=== PATIENT | female | born 1970 | race Caucasian/White ===

== ENCOUNTER → 2017-11-23 09:01 | Outpatient (REF) | payer MEDICAID, SELFPAY ==
[2017-11-23 13:33] LABS: Basophils % 0.5 % (0.1-2.0); Eosinophils # 0.1 K/mm3 (0.0-0.4); Eosinophils % 2.2 % (0.1-12.0); Hematocrit 43.2 % (37.0-47.0); Hemoglobin 13.3 g/dL (12.2-16.2); Lymphocytes # 1.1 K/mm3 (0.7-4.5); Lymphocytes % 20.7 K/mm3 (10-50); Mean Corpuscular HGB Conc 30.8 g/dL (31.8-35.4); Mean Corpuscular Hemoglobin 31.4 pg (27.0-31.2); Mean Corpuscular Volume 101.9 fl (81-99); Mean Platelet Volume 7.9 fl (7.4-10.4); Monocytes # 0.3 K/mm3 (0.1-1.0); Monocytes % 5.8 % (1.7-9.3); Neutrophils # 3.7 K/mm3 (1.8-7.8); Neutrophils % 70.9 % (37.0-80.0); Platelet Count 241 K/mm3 (142-424); Red Blood Count 4.24 M/mm3 (4.20-5.40); Red Cell Distribution Width 12.3 % (11.5-17.5); White Blood Count 5.2 K/mm3 (4.8-10.8)
[2017-11-23 13:55] LABS: Alanine Aminotransferase 28 U/L (12-78); Albumin/Globulin Ratio 1.3 (1.1-1.8); Alkaline Phosphatase 60 U/L (46-116); Anion Gap 14.8 mEq/L (5-15); Aspartate Amino Transferase 19 U/L (15-37); Bilirubin,Total 0.2 mg/dL (0.2-1.0); Blood Urea Nitrogen 17 mg/dL (7-18); Calcium 9.5 mg/dL (8.5-10.1); Carbon Dioxide 27 mmol/L (21.0-32.0); Chloride 104 mmol/L (98-107); Chol/HDL Ratio 3.1 (1-3.5); Cholesterol 269 mg/dL (140-200); Creatinine,Serum 0.71 mg/dL (0.55-1.02); Estimated Glomerular Filt Rate 89 ml/min (>60); GFR (African American) 108 ML/MIN (>60); Glucose 82 mg/dL (74-106); HDL Cholesterol 86 mg/dL (29-89); LDL Cholesterol 163 mg/dL (0-130); Potassium 4.8 mmoL/L (3.5-5.1); Sodium 141 mmol/L (136-145); Thyroid Stimulating Hormone 2.32 uIU/ml (0.358-3.740); Triglycerides 99 mg/dL (30-200); VLDL Cholesterol 20 mg/dL (0-40)
[2017-11-24 06:39] LABS: Vitamin D 25 Hydroxy 16.3 ng/mL (30.0-100.0)
== END ==
LOC: LAB 09:01
PROVIDERS: Visit Provider Physician Assistant
DX: F32.1 Major depressive disorder, single episode, moderate (principal); F51.01 Primary insomnia; G47.00 Insomnia, unspecified; M15.0 Primary generalized (osteo)arthritis; M19.90 Unspecified osteoarthritis, unspecified site; Z79.899 Other long term (current) drug therapy
CPT/HCPCS: 80053; 80061; 82652; 84436; 84443; 85025

== ENCOUNTER → 2018-02-21 09:22 | Outpatient (REF) | payer MEDICAID, SELFPAY ==
[2018-02-21 14:11] LABS: Alanine Aminotransferase 42 U/L (12-78); Albumin Level 4.3 gm/dL (3.4-5.0); Albumin/Globulin Ratio 1.3 (1.1-1.8); Alkaline Phosphatase 72 U/L (46-116); Anion Gap 14.3 mEq/L (5-15); Aspartate Amino Transferase 21 U/L (15-37); Bilirubin,Total 0.4 mg/dL (0.2-1.0); Blood Urea Nitrogen 20 mg/dL (7-18); Calcium 9.6 mg/dL (8.5-10.1); Carbon Dioxide 26 mmol/L (21.0-32.0); Chloride 104 mmol/L (98-107); Cholesterol 241 mg/dL (140-200); Creatinine,Serum 0.94 mg/dL (0.55-1.02); Estimated Glomerular Filt Rate 64 ml/min (>60); GFR (African American) 78 ML/MIN (>60); Globulin 3.2 gm/dl (1.3-3.2); Glucose 85 mg/dL (74-106); HDL Cholesterol 122 mg/dL (29-89); LDL Cholesterol 107 mg/dL (0-130); Potassium 4.3 mmoL/L (3.5-5.1); Sodium 140 mmol/L (136-145); T4 (Thyroxine) 7.2 ug/dl (4.7-13.3); Thyroid Stimulating Hormone 2.94 uIU/ml (0.358-3.740); Total Protein,Serum 7.5 gm/dL (6.4-8.2); Triglycerides 58 mg/dL (30-200); VLDL Cholesterol 12 mg/dL (0-40)
[2018-02-23 14:50] LABS: Folate 15.5 ng/mL (>3.0); Vitamin B12 401 pg/mL (232-1245); Vitamin D 25 Hydroxy 38.5 ng/mL (30.0-100.0)
== END ==
LOC: LAB 09:22
PROVIDERS: Visit Provider Physician Assistant
DX: E78.5 Hyperlipidemia, unspecified (principal); E55.9 Vitamin D deficiency, unspecified
CPT/HCPCS: 80053; 80061; 82607; 82652; 82746; 84436; 84443

== ENCOUNTER → 2018-03-21 07:43 | Outpatient (CLI) | payer MEDICAID, SELFPAY ==
--- NOTE | 2018-03-21 | CA_ITS ---
PROCEDURE: 2-D M-mode and color Doppler study INDICATIONS FOR THE TEST: Chest pain+ COPD Heart Murmur Tobacco SmokingEX Palpitations+ Fatigue Syncope Edema Hypertension Diabetes Mellitus Rheumatic Fever SOB+DE LEON Obesity Hyperlipidemia+ Family History HD+ Additional History heart flipping , chest pressure PATIENT INFORMATION HEIGHT: 64 WEIGHT: 150 GENDER: Female B/P: 131/85 2-D/M-MODE INTERPRETATION: 2-D MEASUREMENTS OBSERVED VALUES IN CMS Right Ventricular Dimension (RVDd) 2.9 Interventricular Septum (Thickness)(IVsd) 0.9 Left Ventricular Internal Dimensions(LVIDd) 4.1 Left Ventricular Posterior Wall (Thickness)(LVPWd) 0.9 Aortic Root 2.3 Aortic Cusp Separation 2.0 Left Atrial Dimensions (LAD) 3.0 2D 1. Left atrium is normal size, left ventricle is normal size, there is no concentric left ventricular hypertrophy, visually estimated ejection fraction 55% with no obvious regional wall motion abnormality. 2. The right atrium and right ventricle are normal size and contractility. 3. The aortic, mitral and tricuspid valve are grossly normal. 4. The pulmonic valve is poorly visualized. 5. No significant pericardial effusion noted. DOPPLER INTERROGATION: Doppler interrogation of the aortic, mitral and tricuspid valvular presence of mild mitral and tricuspid regurgitation, tricuspid regurgitation jet velocity is insufficient for calculation ventricular systolic pressure, diastolic parameters are within normal range. CONCLUSION: 1. Normal left ventricular size, preserved left ventricular systolic function, visually estimated ejection fraction 55% with no regional wall motion abnormality, diastolic parameters are within normal range. 2. Mild mitral and tricuspid regurgitation 3. No significant pericardial effusion noted.
--- NOTE | 2018-03-21 | CI_ITS ---
Cerebrovascular Exam Indications: 785.9 Bruit. IMPRESSIONS 1. The bilateral vertebral arteries are patent with normal antegrade flow. 2. Study suggests less than 20% stenosis involving the right internal carotid artery and the left internal carotid artery. History: Risk factors: Former smoker - years since quittinyr. Hyperlipidemia. Carotid duplex study. Complete study and Doppler flow study including spectral analysis, color and constantino scale imaging. Height: Height: 162.6cm. Height: 64in. Weight: Weight: 68kg. Weight: 149.7lb. Body mass index: BMI: 25.7kg/m^2. Body surface area: BSA: 1.77m^2. Location: Vascular laboratory. Patient status: Outpatient. Tables: Arterial flow: + +--------+--------+ Location V sys V ed + +--------+--------+ Right CCA - proximal 119cm/s 40.1cm/s + +--------+--------+ Right CCA - distal 80.1cm/s 36.1cm/s + +--------+--------+ Right ECA 77.3cm/s -------- + +--------+--------+ Right ICA - proximal 85.6cm/s 33cm/s + +--------+--------+ Right ICA - mid 89.6cm/s 43.2cm/s + +--------+--------+ Right ICA - distal 120cm/s 49.5cm/s + +--------+--------+ Right vertebral 49cm/s -------- + +--------+--------+ Left CCA - proximal 93.7cm/s 28.9cm/s + +--------+--------+ Left CCA - distal 76.1cm/s 33.3cm/s + +--------+--------+ Left ECA 93cm/s -------- + +--------+--------+ Left ICA - proximal 76.1cm/s 37.1cm/s + +--------+--------+ Left ICA - mid 107cm/s 44cm/s + +--------+--------+ Left ICA - distal 96.8cm/s 42.7cm/s + +--------+--------+ Left vertebral 60.3cm/s -------- + +--------+--------+ Velocity ratios: + + + + + + Right, V sys Right, V ed Left, V sys Left, V ed + + + + + + Max ICA/dist CCA 1.5 1.37 1.41 1.32 + + + + + + (Report amended ) Electronically signed by: Arturo Corbin [id number]
--- NOTE | 2018-03-21 07:46 | CT_ITS ---
Calcium scoring CT heart w calcium score ITS.REASON: . ORDERING PHYSICIAN ALYSHA 48 years COMPARISON: None Technique: All CT scans at this facility use one or more dose reduction techniques, viz.: automated exposure control, ma/kV adjustment per patient size (including targeted exams where dose is matched to indication, i.e. head) or iterative reconstruction technique. . Total exam DLP 143.91 with CTDI = 8.99 .. Calcium score = 0 indicating a moderate. No identifiable at the right plaque. Very low cardiovascular disease risk. Visual inspection shows no significant coronary artery calcifications either. There are some chronic lung changes and airway thickening seen towards the left base more so than right consistent been noted.. Limited images submitted of the chest for the calcium score normal caliber of ascending aorta. No gross mediastinal findings on this limited set of images --------IMPRESSION: ------- Coronary artery Calcium score = 0 . Very low cardiovascular disease risk.
== END ==
PROVIDERS: PCP Physician Assistant; Visit Provider Internal Medicine
DX: E78.5 Hyperlipidemia, unspecified (principal); Z82.49 Family history of ischemic heart disease and other diseases of the circulatory system; R09.89 Other specified symptoms and signs involving the circulatory and respiratory systems
CPT/HCPCS: 75571; 93306; 93880

== ENCOUNTER → 2019-06-05 14:40 | Outpatient (CLI) | payer OTHER, SELFPAY ==
--- NOTE | 2019-06-05 14:42 | US_ITS ---
PROCEDURE: US TRANSVAGINAL CLINICAL INDICATION: US T/V- Heavy Bleeding COMPARISON: No exams were available for comparison FINDINGS: The uterus is 10 x 6 x 6 cm with a combined endometrial thickness of 12 mm. The uterus is retroverted. There is a 2.4 cm fibroid in the inferior aspect of the body of the uterus. A 4.6 cm fibroid is present in the body/fundal uterus region anteriorly. The left ovary is 4 x 2.5 cm and contains 2 cyst at approximately 2 cm. The right ovary is 3.2 by 2 cm. No cul-de-sac fluid evident. IMPRESSION: Enlarged retroverted uterus containing fibroids and mildly thickened endometrium Dictated by: Daniel Clark MD 06/06/2019 14:24 Electronically signed by Daniel Clark MD in [facility] 06/06/2019 14:24
== END ==
PROVIDERS: PCP Physician Assistant; Visit Provider Obstetrics & Gynecology
DX: N92.0 Excessive and frequent menstruation with regular cycle (principal)
CPT/HCPCS: 76830

== ENCOUNTER → 2019-09-01 09:20 | Outpatient (CLI) | payer OTHER, SELFPAY ==
[2019-09-01 10:07] LABS: HCG Qualitative, Serum Negative (Negative)
[2019-09-01 10:44] LABS: Chloride 101 mmol/L (98-107)
[2019-09-01 10:45] LABS: Potassium 4.9 mmoL/L (3.5-5.1); Sodium 138 mmol/L (136-145)
[2019-09-01 10:47] LABS: Alanine Aminotransferase 35 U/L (12-78); Aspartate Amino Transferase 48 U/L (14-36); Blood Urea Nitrogen 14 mg/dl (7-17); Estimated Glomerular Filt Rate 107 ml/min (>60); GFR (African American) 130 ML/MIN (>60)
[2019-09-01 10:48] LABS: Albumin Level 4.6 g/dl (3.5-5.0); Alkaline Phosphatase 50 U/L (38-126); Anion Gap 12.9 mEq/L (5-15); Bilirubin,Total 0.4 mg/dl (0.2-1.3); Calcium 9.7 mg/dl (8.4-10.2); Carbon Dioxide 29 mmol/L (22.0-30.0); Globulin 2.3 g/dL (1.3-3.2); Glucose 80 mg/dl (74-100); Total Protein,Serum 6.9 g/dl (6.3-8.2)
[2019-09-01 12:32] LABS: Basophils % 0.4 % (0.1-2.0); Eosinophils # 0.1 K/mm3 (0.0-0.4); Eosinophils % 2.1 % (0.1-12.0); Hematocrit 39.9 % (37.0-47.0); Lymphocytes # 1.2 K/mm3 (0.7-4.5); Lymphocytes % 21.5 % (10-50); Mean Corpuscular HGB Conc 32.5 g/dL (31.8-35.4); Mean Corpuscular Volume 101.4 fl (81-99); Mean Platelet Volume 7.5 fl (7.4-10.4); Monocytes # 0.3 K/mm3 (0.1-1.0); Monocytes % 5.4 % (1.7-9.3); Neutrophils # 3.9 K/mm3 (1.8-7.8); Neutrophils % 70.6 % (37.0-80.0); Platelet Count 309 K/mm3 (142-424); Red Blood Count 3.94 M/mm3 (4.20-5.40); Red Cell Distribution Width 12.1 % (11.5-17.5); White Blood Count 5.5 K/mm3 (4.8-10.8)
[2019-09-01 12:46] LABS: Activated Partial Thrombo Time 22.4 seconds (23.6-34.0); INR 0.95 (0.9-1.1); Prothrombin Time 9.9 seconds (9.4-11.8)
== END ==
PROVIDERS: Visit Provider Obstetrics & Gynecology
DX: Z01.818 Encounter for other preprocedural examination (principal); D69.6 Thrombocytopenia, unspecified; D69.1 Qualitative platelet defects
CPT/HCPCS: 36415; 80053; 84703; 85025; 85610; 85730

== ENCOUNTER → 2020-01-04 15:07 | Outpatient (CLI) | payer OTHER, SELFPAY ==
[2020-01-04 15:21] LABS: Basophils % 0.6 % (0.1-2.0); Eosinophils # 0.3 K/mm3 (0.0-0.4); Eosinophils % 5.4 % (0.1-12.0); Hematocrit 42.6 % (37.0-47.0); Hemoglobin 13.5 g/dL (12.2-16.2); Lymphocytes # 1.1 K/mm3 (0.7-4.5); Lymphocytes % 20.4 % (10-50); Mean Corpuscular HGB Conc 31.7 g/dL (31.8-35.4); Mean Corpuscular Hemoglobin 33.9 pg (27.0-31.2); Monocytes # 0.3 K/mm3 (0.1-1.0); Monocytes % 5.8 % (1.7-9.3); Neutrophils # 3.6 K/mm3 (1.8-7.8); Neutrophils % 67.7 % (37.0-80.0); Platelet Count 293 K/mm3 (142-424); Red Blood Count 3.98 M/mm3 (4.20-5.40); Red Cell Distribution Width 12.1 % (11.5-17.5); White Blood Count 5.4 K/mm3 (4.8-10.8)
== END ==
PROVIDERS: Visit Provider Physician Assistant
DX: I10 Essential (primary) hypertension (principal)
CPT/HCPCS: 85025

== ENCOUNTER → 2020-01-15 15:25 | Outpatient (CLI) | payer OTHER, SELFPAY ==
[2020-01-17 13:30] LABS: Vitamin B12 342 pg/mL (232-1245)
[2020-01-18 09:38] LABS: Folate 13.4 ng/mL (>3.0)
== END ==
PROVIDERS: Visit Provider Physician Assistant
DX: R71.8 Other abnormality of red blood cells (principal)
CPT/HCPCS: 36415; 82607; 82746

== ENCOUNTER → 2020-07-08 16:51 | Outpatient (CLI) | payer OTHER, SELFPAY | PROVIDERS: Visit Provider Physician Assistant | DX: R35.0 Frequency of micturition (principal) | CPT/HCPCS: 87086 ==

== ENCOUNTER → 2020-07-10 09:47 | Outpatient (CLI) | payer OTHER, SELFPAY ==
--- NOTE | 2020-07-10 09:50 | XR_ITS ---
PROCEDURE: XR LUMBAR SPINE MIN 4V CLINICAL INDICATION: LBP Low back pain COMPARISON: No exams were available for comparison FINDINGS: No fracture or dislocation. No lytic or blastic change. There is normal mineralization. There is normal alignment. Degenerative disc disease is present at L4-5 and L5-S1. There are facet arthritic changes at L5-S1. There is also mild sclerosis the right SI joint. Other findings:None. IMPRESSION: Mild degenerative changes Dictated by: Daniel Clark MD 07/10/2020 17:12 Daniel Clark MD in [facility] 07/10/2020 17:12
== END ==
PROVIDERS: PCP Emergency Medicine; Visit Provider Physician Assistant
DX: M54.5 Low back pain (principal)
CPT/HCPCS: 72110

== ENCOUNTER 2020-07-15 15:38 | Outpatient (RCR) | payer OTHER, SELFPAY ==
--- NOTE | 2020-07-15 17:05 | HMH.PTOPEV ---
PT Outpatient Evaluation Rehab PT Outpatient Evaluation Start: 07/15/20 16:56 Freq: Status: Active Protocol: Document 07/15/20 16:56 BLANCAPAULINA (Rec: 07/15/20 17:05 BENJAMIN [id number]) Electronically Signed By Jude Chase PT 07/15/20 16:56 Outpatient Therapy Subjective History Subjective History THis is the initial Physical THerapy evalaution for Marlee Joseph. Pt is a 50 y/o female referred to PT for c/o LBP. Pt reports she began having LBP ~ Jun 27. Pt reports she woke up and felt like she slept on it wrong . Pt reports by the end of the day pain was excruciating and she was having difficulty walking. Pt reports pain has improved but she still has significant pain in lumbosacral area. Pt reports no trauma to low back . Chief Complaint Pain Symptom Type Sharp Symptoms Relieved By Rest/Positioning,Heat,Ice Symptoms Aggravated By Sitting,Standing,Bending/ Stooping,Physical Activity Prior Functional Limitations None,Bending/Stooping Current Functional Limitations Housework,Standing,Sitting, Recreation Activity,Bending/ Stooping Symptom Description Constant but Variable Level of pain today (0-10) 5 Pain scale - at its best (0-10) 5 Pain scale - at its worst (0-10) 9 Lumbopelvic Eval Palapation tenderness bilateral lumbar spinal tenderness Yes paraspinal tenderness Yes buttock tenderness No Lumbar/Sacral Palpation Findings Tenderness Range of Motion Lumbar Spine Active Flexion Range of 60 Motion (degrees) Lumbar Spine Active Extension Range of 20 Motion (degrees) Left Lumbar Spine Lateral Flexion Active 25 Range of Motion (degrees) Right Lumbar Spine Lateral Flexion 25 Active Range of Motion (degrees) Lumbar Spine ROM Limitations Soft Tissue Tightness,Pain Special Tests Lumbar Spine Screen Positive Forward Bending Test- Standing Positive Right Hip Scouring (Quadrant) Test Negative Left,Negative Right Hip Piriformis Test Negative Left,Negative Right Sciatic Nerve Tension Test Negative Left,Negative Right Unilateral Straight Leg Raise (Lasegue) Negative Left,Negative Right Test Sacroiliac Joint Compression Test Negative Left,Negative Right Lumbar Long Leighton Di
== END 2020-07-15 15:40 | disposition home or self-care (01) ==
LOC: PT 15:38
PROVIDERS: Referring Provider Physician Assistant; Visit Provider Physician Assistant
DX: M54.5 Low back pain (principal)
CPT/HCPCS: 97163

== ENCOUNTER → 2020-08-28 18:29 | Outpatient (CLI) | payer OTHER, SELFPAY ==
[2020-08-28 20:20] LABS: Amphetamine/Metha Screen,Urine Negative ng/ml (<1000)
[2020-08-28 20:21] LABS: Barbiturates Screen,Urine Negative ng/ml (<200)
[2020-08-28 20:22] LABS: Benzodiazepines Screen,Urine Negative ng/ml (<200); Cannabinoid Screen,Urine Negative ng/ml (<50)
[2020-08-28 20:23] LABS: Cocaine Screen,Urine Negative ng/ml (<300)
[2020-08-28 20:24] LABS: Methadone Screen,Urine Negative ng/ml (<300); Opiate Screen,Urine Positive ng/ml (<300)
[2020-08-28 20:25] LABS: Phencyclidine Screen,Urine Negative ng/ml (<25)
== END ==
PROVIDERS: Visit Provider Physician Assistant
DX: M54.5 Low back pain (principal); E78.5 Hyperlipidemia, unspecified; E55.9 Vitamin D deficiency, unspecified; N92.0 Excessive and frequent menstruation with regular cycle; Z82.49 Family history of ischemic heart disease and other diseases of the circulatory system; Z79.899 Other long term (current) drug therapy
CPT/HCPCS: 80305

== ENCOUNTER 2020-09-06 10:00 | Outpatient (RCR) | payer OTHER, SELFPAY ==
--- NOTE | 2020-08-30 11:42 | HMH.PTOPEV ---
PT Outpatient Evaluation Rehab PT Outpatient Evaluation Start: 08/30/20 11:30 Freq: Status: Active Protocol: Document 08/30/20 11:30 IVANNAUMA (Rec: 08/30/20 11:42 IVANNAJAIMEGENEVA [id number]) Electronically Signed By Osman Valdez, PT 08/30/20 11:30 Outpatient Therapy Subjective History Subjective History Patient is a 50 year old female presenting to outpatient PT with reports of sub-acute LBP starting approx 1.5 months ago with acute exacerbation starting approx 1 week ago. Patient was previously set up with PT exercises to do at home that provided some improvement, but most recently experienced exacerbation after a bending/ lifting activity. Most recent imaging indicates L4/5 L5/S1 DDD and facet arthritic changes. No other comorbidities to report. Chief Complaint Pain,Stiff Symptom Type Throb Symptoms Relieved By Heat,Ice,Prescription Meds Prior Functional Limitations None Current Functional Limitations Lifting,Housework,Standing, Squatting,Walking,Bending/ Stooping Symptom Description Constant but Variable Level of pain today (0-10) 6 Pain scale - at its best (0-10) 3 Pain scale - at its worst (0-10) 6 Lumbopelvic Eval Posture Thoracic Spine Posture Standing Position Neutral Lumbar Spine Posture Standing Position Neutral Assistive device Assistive Devices None / NA Palapation tenderness right lumbar spinal tenderness Yes: L4/5 S1 3/4 paraspinal tenderness Yes: buttock tenderness Yes: 3/4 Lumbar/Sacral Palpation Findings Tenderness Accessory Movement L4 right L5 right S1 right Range of Motion Lumbar Spine Active Flexion Range of 74 Motion (degrees) Lumbar Spine Active Extension Range of 12 Motion (degrees) Left Lumbar Spine Lateral Flexion Active 30 Range of Motion (degrees) Right Lumbar Spine Lateral Flexion 20 Active Range of Motion (degrees) Lumbar Spine ROM Limitations Soft Tissue Tightness,Bony Restriction Manual Muscle Test Bilateral Knee Extension Strength Grade 5 Normal Knee Flexion Strength Grade 5 Normal Hip Flexion Strength Grade 5 Normal
== END 2020-09-06 10:05 | disposition home or self-care (01) ==
LOC: PT 10:00
PROVIDERS: PCP Emergency Medicine; Visit Provider Physician Assistant
DX: M54.5 Low back pain (principal)
CPT/HCPCS: 97010; 97014; 97033; 97035; 97110; 97163; G0283

== ENCOUNTER → 2020-09-09 08:27 | Outpatient (CLI) | payer OTHER, SELFPAY ==
--- NOTE | 2020-09-09 08:27 | MM_ITS ---
PROCEDURE: MM DIG SCREENING MAMM BI W/CAD Digital Breast Tomosynthesis Included CLINICAL INDICATION: Breast cancer screening by mammogram There is no personal or family history of breast cancer. COMPARISON: MG MA MAMMO SCRN DIGITL BILAT from 09/17/2014 MG MA MAMMO SCRN DIGITL BILAT from 10/02/2015 MG MA MAMMO DIAG DIGITL LT from 10/30/2015 TECHNIQUE: Standard CC and MLO images and 3D Tomosynthesis was obtained. R2 CAD reviewed. FINDINGS: Diffuse fibroglandular densities are seen in both breast primarily upper outer quadrants. The findings are fairly symmetrical bilaterally. There is a mole marker left breast. There are couple of benign-appearing microcalcifications left breast. A couple of CAD markings right breast were reviewed and appear to be benign. There is no suspicious lesion and no suspicious microcalcifications. IMPRESSION: Moderate breast density with no suspicious lesions seen BI-RAD Category: 2 Benign Finding(s) FOLLOW-UP: 1YR 1 Year Follow-up (A letter has been sent to the patient regarding results of the study.) Dictated by: Dr. Huber Elizabeth MD 09/30/2020 16:45 Dr. Huber Elizabeth MD in [facility] 09/30/2020 16:45
== END ==
PROVIDERS: PCP Emergency Medicine; Visit Provider Physician Assistant
DX: Z12.31 Encounter for screening mammogram for malignant neoplasm of breast (principal)
CPT/HCPCS: 77063; 77067

== ENCOUNTER → 2020-09-14 09:37 | Outpatient (CLI) | payer OTHER, SELFPAY ==
[2020-09-14 11:11] LABS: Basophils % 0.8 % (0.1-2.0); Eosinophils % 0.1 % (0.1-12.0); Hematocrit 38.3 % (37.0-47.0); Hemoglobin 12.6 g/dL (12.2-16.2); Lymphocytes % 22.1 % (10-50); Mean Corpuscular HGB Conc 32.8 g/dL (31.8-35.4); Mean Corpuscular Hemoglobin 32.9 pg (27.0-31.2); Mean Corpuscular Volume 100.1 fl (81-99); Monocytes # 0.3 K/mm3 (0.1-1.0); Neutrophils # 3.1 K/mm3 (1.8-7.8); Neutrophils % 71.1 % (37.0-80.0); Platelet Count 275 K/mm3 (142-424); Red Blood Count 3.82 M/mm3 (4.20-5.40); White Blood Count 4.4 K/mm3 (4.8-10.8)
[2020-09-14 12:14] LABS: HCG Qualitative, Serum Negative (Negative)
[2020-09-14 12:59] LABS: Alanine Aminotransferase 16 U/L (12-78); Albumin Level 4.4 g/dl (3.5-5.0); Albumin/Globulin Ratio 1.8 (1.1-1.8); Alkaline Phosphatase 69 U/L (38-126); Anion Gap 12.5 mEq/L (5-15); Aspartate Amino Transferase 29 U/L (14-36); Bilirubin,Total 0.4 mg/dl (0.2-1.3); Blood Urea Nitrogen 16 mg/dl (7-17); Calcium 9.2 mg/dl (8.4-10.2); Carbon Dioxide 22 mmol/L (22.0-30.0); Chloride 109 mmol/L (98-107); Estimated Glomerular Filt Rate 67 ml/min (>60); GFR (African American) 81 ML/MIN (>60); Globulin 2.4 g/dL (1.3-3.2); Glucose 98 mg/dl (74-100); Potassium 4.5 mmoL/L (3.5-5.1); Sodium 139 mmol/L (136-145); Total Protein,Serum 6.8 g/dl (6.3-8.2)
== END ==
PROVIDERS: PCP Physician Assistant; Visit Provider Obstetrics & Gynecology
DX: Z01.818 Encounter for other preprocedural examination (principal); Z20.822 Contact with and (suspected) exposure to COVID-19; N92.0 Excessive and frequent menstruation with regular cycle; N85.2 Hypertrophy of uterus
CPT/HCPCS: 36415; 80053; 84703; 85025; U0003

== ENCOUNTER 2020-09-16 06:31 | Inpatient (IN) | payer OTHER, SELFPAY ==
[2020-09-10 11:27] VITALS: BMI 25.7
[2020-09-16] VITALS (20 sets, daily range): BP systolic 98–163; BP diastolic 53–93; PULSE 62–101; RESP 16–18; TEMP 6.1–43; O2SAT 92–99
--- NOTE | 2020-09-16 08:29 | HMH.HP ---
*Admission Date: 09/16/20 *Chief complaint: scheduled hysterectomy *History of present illness: 50 yo with heavy menstrual bleeding and enlarged uterus multiple multiple fibroids She has been taking po provera for management of dysfunctional bleeding Pelvic Ultrasound: The uterus is 10 x 6 x 6 cm with a combined endometrial thickness of 12 mm. The uterus is retroverted. There is a 2.4 cm fibroid in the inferior aspect of the body of the uterus. A 4.6 cm fibroid is present in the body/fundal uterus region anteriorly. The left ovary is 4 x 2.5 cm and contains 2 cyst at approximately 2 cm. The right ovary is 3.2 by 2 cm. No cul-de-sac fluid evident. Counseled for preservation of ovaries if they appear normal at time of surgery [facility] History I have reviewed the patient's past medical history: Yes Medical History: Reports:: Anxiety, Depression, Hyperlipidemia Denies:: Asthma, Cancer, Diabetes Mellitus Type 1, Diabetes Mellitus Type 2, Internal Pacemaker, MRSA, Seizures *Have you ever received a pneumonia vaccine?: No *Have you received a flu vaccine this season?: No Other Medical History: Reports: Other. Denies: Blood Transfusion Reaction Other Surgeries: Yes: Tubal Ligation. No: Pacemaker Amputation: No Fractures: No - *Social History Last grade of school completed: High school graduate Smoking Status: Former smoker Alcohol Intake: current Alcohol Intake Frequency:: a few times a week Substance Use Type: denies use *Occupational Status:: employed Housing: house Household Members: spouse *Travel in the last 8 weeks: None - Psychiatric History Pschychiatric History:: Reports:: Anxiety, Depression Family Hx:: No significant family history Review of Systems - Review of Systems Review of systems:: pertinent systems reviewed and negative unless documented below - *Genitourinary Reports abnormal vaginal bleeding, Reports pelvic pain Meds Home Medications Medication Instructions Recorded Confirmed Type ondansetron HCl 4 mg tablet 4 mg PO TID PRN #30 tab 12/06/18 09/16/20 Rx hydrocodone 5 mg-acetaminophen 325 1 tab PO Q6H PRN #40 tab 08/28/20 09/16/20 Rx mg tablet Aspirin [Low Dose Aspirin EC] 81 mg PO DAILY 09/10/20 09/16/20 History Atorvastatin Calcium [Lipitor 20mg See Rx Instructions .ROUTE .COMPLEX 09/10/20 09/16/20 History Tab] Cholecalciferol (Vitamin D3) 1,000 unit PO DAILY 09/10/20 09/16/20 History [Vitamin D3 1,000 Unit Cap] Duloxetine HCl [Cymbalta] See Rx Instructions .ROUTE .COMPLEX 09/10/20 09/16/20 History Ergocalciferol (Vitamin D2) See Rx Instructions .ROUTE .COMPLEX 09/10/20 09/16/20 History [Drisdol] Ibuprofen See Rx Instructions .ROUTE .COMPLEX 09/10/20 09/16/20 History Losartan/Hydrochlorothiazide 1 tab PO DAILY 09/10/20 09/16/20 History [Losartan-Hctz 50-12.5 mg Tab] Medroxyprogesterone Acetate 10 mg PO .3 tablets bid 09/10/20 09/16/20 History [Provera] Nystatin [Nystatin Cr 100,000 1 applic TOPICAL DAILY 09/10/20 09/16/20 History Units/GM 30GM] Quetiapine Fumarate See Rx Instructions .ROUTE .COMPLEX 09/10/20 09/16/20 History Valacyclovir HCl [Valacyclovir] 1,000 mg PO BID 09/10/20 09/16/20 History Allergies Allergy/AdvReac Type Severity Reaction Status Date / Time No Known Allergies Allergy Verified 09/16/20 07:35 Exam Vital signs and Labs for Last 24 Hours: Temp Pulse Resp BP Pulse Ox 97.5 F L 72 18 144/91 H 99 09/16/20 07:39 09/16/20 07:39 09/16/20 07:39 09/16/20 07:39 09/16/20 07:39 - Constitutional no acute distress - *Routine HEENT Exam Head: Present: normocephalic, atraumatic Eye: Absent: conjunctival icterus, scleral injection ENT: Present: mucous membranes moist - *Routine Neck Exam Present: supple - *Routine Respiratory Exam Present: CTA bilaterally. Absent: respiratory distress - *Routine Cardiovascular Exam Present: RRR - *Routine Abdominal Exam Present: soft. Absent: tenderness, distended - *Ro
--- NOTE | 2020-09-16 09:05 | P.PN_ITS ---
[facility] Anesthesia Checklist - Patient Identification Patient Identification: Arm Band - Structural Data Admitted From: Home Planned Operative Procedure/s: CHARIS Consent for Planned Operative Procedure(s) Verified: Yes Verified Documents: Surgical Consent, History and Physical - NPO Status Verified Time NPO: 00:00 - Additional verifications Anesthesia Reactions: No Hx Blood Transfusions: No Blood Transfusion Reaction: No - Airway Assessment C-Spine Mobility Assessed: Yes (mp2) TMJ Mobility Assessed: Yes Dentition: Good Dentition - Neurological Assessment Level of Consciousness: Awake, Alert - Anesthesia Plan Anesthesia Risk discussed: Yes Anesthesia Plan: Verified ASA Class: II Anesthesia Type: General w/block (bilateral TAP block) [facility] History I have reviewed the patient's past medical history: Yes Medical History: Reports:: Anxiety, Depression, Hyperlipidemia, Hypertension Denies:: Asthma, Cancer, Diabetes Mellitus Type 1, Diabetes Mellitus Type 2, Internal Pacemaker, MRSA, Seizures *Have you ever received a pneumonia vaccine?: No *Have you received a flu vaccine this season?: No Other Medical History: Reports: Other. Denies: Blood Transfusion Reaction Anesthesia experience/problems:: nac Other Surgeries: Yes: Tubal Ligation. No: Pacemaker Amputation: No Fractures: No - *Social History Last grade of school completed: High school graduate Smoking Status: Former smoker Alcohol Intake: current Alcohol Intake Frequency:: a few times a week Substance Use Type: denies use *Occupational Status:: employed Housing: house Household Members: spouse *Travel in the last 8 weeks: None - Psychiatric History Pschychiatric History:: Reports:: Anxiety, Depression Family Hx:: No significant family history
--- NOTE | 2020-09-16 10:11 | P.PN_ITS ---
[facility] Anesthesia Record Part I Intake, IV Amount: 1,200 Estimated blood loss (mL): 100 Urine output (mL): 50 Blood Pressure: 163/93 SaO2: 94 Pulse Rate: 78 Respiratory Rate: 16 Temperature: 99.7 F Patient is:: Drowsy, Stable Stable to PACU at:: 10:00
--- NOTE | 2020-09-16 10:46 | HMH.OPNOTE ---
Date of procedure: 09/16/20 Pre-op Diagnosis:: 1. Heavy menstrual bleeding 2. Enlarged/bulky uterus 3. Uterine Fibroids Post-op Diagnosis:: same Procedure performed:: Total abdominal hysterectomy Surgeon:: Florence Lala MD Agency Sales Director(s):: Johnnie Chawla MD WATER FILTER CLEANER:: Santosh Joan Anesthesia: GETA Estimated blood loss (mL): 100 Operative findings:: enlarged uterus, uterine fibroids normal appearing ovaries and fallopian tubes bilaterally previous tubal ligation Operative note:: The patient was taken to the operating room and general anesthesia was administered without difficulty. She was prepped and draped in the supine position. A Pfannenstiel skin incision was made approximately 2 cm above the pubic symphysis with a scalpel and carried down to the underlying layer of fascia. The fascia was incised in the midline and extended laterally sharply. The rectus muscles were sharply dissected off the fascia and in the midline. The peritoneum was turned and sharply, with good visualization of the underlying structures. The peritoneal incision was extended bluntly. A survey of the patient's pelvis and abdomen revealed the findings noted above. At this time, the patient was placed in Trendelenburg and a Gisselle retractor was placed in the abdomen; the bowel was packed with moist laparotomy sponges. A double tooth tenaculum was placed on the uterine fundus and the uterus was elevated out of the pelvis. The round ligaments were identified and transected and suture-ligated. The anterior lip of the broad ligament was dissected medially on both sides and the bladder flap was created digitally. The large fibroid was mid left lateral uterine body, but this did not obstruct the ability to create a functional bladder flap. The posterior leaf of the broad ligament was dissected until the ureters were able to be identified on either side and noted to be free of the forthcoming adnexal pedicles. Both ovaries appeared normal and decision was made to preserve normal ovarian function. Infundibulopelvic ligaments were doubly clamped transected and suture ligated on either side, with excellent hemostasis noted. The fallopian tubes on either side were clamped transected and suture ligated and the specimens were set aside for pathology. The uterine arteries were skeletonized on either side, and were clamped, transected and suture ligated with excellent hemostasis. The bladder flap was further bluntly dissected off the lower uterine segment with excellent hemostasis and without injury to the bladder. The large fibroid mid-uterine body on the left required an additional few bites but no excessive bleeding was noted. The cardinal and uterosacral ligaments were clamped transected and suture ligated on both sides until the vaginal mucosa was entered. The vaginal incision was extended circumferentially with the Jorganson scissors; the uterus and cervix were removed abdominally and sent for pathology, along with the fallopian tubes. The vaginal cuff angles were closed 0 Vicryl [id number] sutures and were transfixed to the ipsilateral cardinal and uterosacral ligaments. The remainder of the vaginal cuff was closed with 0 Vicryl interrupted sutures. The pelvis was copiously irrigated with a solution of sterile water. The cuff was hemostatic. All pedicles were reexamined and remained hemostatic. All instruments were removed from the patient's abdomen. The peritoneum was closed with 2-0 Vicryl in a running fashion. The fascia was closed with 0 Vicryl in a running fashion. Subcutaneous fat was reapproximated with 2-0 vicryl interrupted sutures. The skin was closed with preethi. The patient tolerated the procedure well; sponge/lap/needle and instrument counts were correct ?2. She was taken to the recovery room awake in stable condition. Estimated blood loss: 100 cc. Condition: stable Disposition: PACU Complications:: none
--- NOTE | 2020-09-16 11:00 | PC.NURSE ---
Pt. rates pressure at 8/10 at incision site, site remain C/D/I, pink and warm. Nurse educated pt. on pain medications. Pt. refused pain medication at this time. Pt. denies needs, will continue to monitor.
--- NOTE | 2020-09-16 12:00 | PC.NURSE ---
Pt. reports pain remains at 8/10, but wishes to have pain medications, 1mg dilaudid given at this time. Pt. tolerated well, O2 sats noted to drop to 89% after administration, NC at 2L O2 applied. O2 sats up to 97%. Pt. denies further needs, will continue to monitor.
--- NOTE | 2020-09-16 14:21 | HMH.PHAINT ---
MEDICATION RECONCILIATION COMPLETED ON PATIENT USING EXTERNAL FILL HISTORY FROM PHARMACY. -DELFIN POLK, HONGD
--- NOTE | 2020-09-16 14:22 | HMH.PHAVTE ---
[facility] Pharmacy VTE Monitoring - Patient Demographics Admission date: 09/16/20 Report Date: 09/16/20 Time: 14:22 Allergies/Adverse Reactions: Patient Allergies No Known Allergies Allergy (Verified 09/16/20 07:35) Height: 1.63 m Weight: 68.039 kg Patient Problems: Current Active Problems (Last Updated 11/25/17 @ 08:34 by TACO Varghese) Bulky or enlarged uterus (Acute) Heavy menses (Acute) Uterine fibroid (Acute) - VTE Risk Was VTE Risk Assessment Performed: Yes VTE Score: 2 VTE Risk Level: Very Low Risk - Prophylaxis VTE Prophylaxis Ordered?: Yes Types of VTE Prophylaxis: IPCS Thigh High Location of Applied Device: Bilateral Lower Extremeties
[2020-09-16 14:38] LABS: Microscopic,Cath URINE MICROSCOPIC (MICROSCOPIC)
[2020-09-16 14:39] LABS: Appearance,Urine/Cath CLEAR (Clear); Bilirubin,Cath Negative (Negative); Blood, Urine/Cath Negative (Negative); Color,Urine/Cath YELLOW (Yellow); Glucose,Urine/Cath (UA) Negative (Negative); Ketones,Urine/Cath Negative (Negative); Leukocyte Esterase,Cath Negative (Negative); Nitrate,Cath Negative (Negative); Protein,Urine/Cath Negative (Negative); Specific Gravity, Urine/Cath 1.025 (1.005-1.030); Urobilinogen,Cath 0.2 EU/dl (0.2)
[2020-09-16 14:51] LABS: WBC,Urine/Cath Occasional #/hpf (0-3)
--- NOTE | 2020-09-16 16:00 | PC.NURSE ---
Routine reassessment completed. Pt. reports pain is more comfortable, pain is gone from incision site. Pt. denies nausea with clear liquids and cracker. small amount of serous drainage noted to right side of LTV Telfa and tegaderm. No further acute changes noted. Pt. resting in bed, denies needs, will continue to monitor.
--- NOTE | 2020-09-16 17:25 | PC.NURSE ---
O2 sats at 99% on 2L. NC Removed. O2 SATS AT 97% on RA. Will continue to monitor.
--- NOTE | 2020-09-16 19:00 | PC.NURSE ---
Report given Debra Roland RN, & Mac Olivares RN.
[2020-09-17] VITALS: BP 113/54; PULSE 77; RESP 18; TEMP 36.6; O2SAT 98
[2020-09-17 04:00] VITALS: BP 127/70; PULSE 77; RESP 18; TEMP 36.7; O2SAT 97
--- NOTE | 2020-09-17 04:38 | PC.NURSE ---
No acute changes this shift. Patient has done well and her pain has been managed with prn and scheduled medications. She has slept well through the night. Her lungs remain ctab and bowel sounds are normoactive in all quadrants. She is tolerating a regular diet very well and has a good appetite. Patient still has a moctezuma catheter that will come out this morning. She has had a total output of 3000ml. She remains on 125ml/hr of LR. Her incision remains covered by a telfa and tegaderm dressing that has a small amount of serosang drainage on the right side that is unchanged since initial assessment at start of shift. Vital signs are stable and she is afebrile. Patient is A&O x4.
--- NOTE | 2020-09-17 06:17 | PC.NURSE ---
LAB AT BEDSIDE AT THIS TIME
--- NOTE | 2020-09-17 06:20 | PC.NURSE ---
SIBLEY CATHETER D/C AT THIS TIME. PATIENT TOLERATED WELL.
--- NOTE | 2020-09-17 06:35 | PC.NURSE ---
PATIENT AMBULATED TO BATHROOM WITH STANDBY ASSIST BUT DID NOT URINATE AT THIS TIME. SHE WAS ABLE TO GET HERSELF CLEANED UP. THERE IS A HAT IN THE TOILET FOR I&O. PATIENT TOLERATED AMBULATION WELL.
[2020-09-17 06:46] LABS: Basophils % 0.2 % (0.1-2.0); Eosinophils % 0.2 % (0.1-12.0); Hematocrit 36.7 % (37.0-47.0); Hemoglobin 11.6 g/dL (12.2-16.2); Lymphocytes # 1.2 K/mm3 (0.7-4.5); Lymphocytes % 14.9 % (10-50); Mean Corpuscular HGB Conc 31.7 g/dL (31.8-35.4); Mean Corpuscular Hemoglobin 32.8 pg (27.0-31.2); Mean Corpuscular Volume 103.3 fl (81-99); Mean Platelet Volume 7.6 fl (7.4-10.4); Monocytes # 0.5 K/mm3 (0.1-1.0); Monocytes % 6.4 % (1.7-9.3); Neutrophils # 6.2 K/mm3 (1.8-7.8); Neutrophils % 78.2 % (37.0-80.0); Platelet Count 230 K/mm3 (142-424); Red Blood Count 3.55 M/mm3 (4.20-5.40)
--- NOTE | 2020-09-17 07:01 | PC.NURSE ---
ALL CARE AND CHARTING UNDER MY SUPERVISION
[2020-09-17 07:15] LABS: Blood Urea Nitrogen 15 mg/dl (7-17); Calcium 9.4 mg/dl (8.4-10.2); Carbon Dioxide 31 mmol/L (22.0-30.0); Chloride 102 mmol/L (98-107); Creatinine Clearance Estimated 123 mL/min (50-200); Estimated Glomerular Filt Rate 107 ml/min (>60); GFR (African American) 129 ML/MIN (>60); Glucose 86 mg/dl (74-100); Sodium 137 mmol/L (136-145)
[2020-09-17 08:00] VITALS: BP 110/69; PULSE 90; RESP 16; TEMP 36.5; O2SAT 96
--- NOTE | 2020-09-17 08:25 | PC.NURSE ---
JE Binder provided. nurse educated pt. on use. Pt. v/u. Pt. up to shower, Bed changed out as bed has a broken cord, new clean bed in place, with clean linens.
--- NOTE | 2020-09-17 08:34 | P.PN_ITS ---
[facility] Anesthesia Record Part II Discharge Time: 10:20 Destination: Obstetric PACU nurse assessment reviewed?: Yes Patient Condition:: Good Anesthesia Complications:: None Swallowing reflex intact?: Yes Cyanosis?: No Blood Pressure: 136/87 Pulse Rate: 88 Temperature: 99.6 F Mental Status: Alert & Oriented Pain level:: 0 Nausea and/or vomitting:: None Intake, IV Amount: 0
[2020-09-17 08:36] VITALS: BP 136/87; PULSE 88; TEMP 37.6
--- NOTE | 2020-09-17 08:45 | PC.NURSE ---
Pt. back to bed, pt. has changed into own clothes, LTV T&T Removed, Site left open to air. Pt. tolerated well. Nurse instructed pt. on site care and wearing pants waist above incision to prevent irritation. Pt. v/u. Pt. denies further needs, will continue to monitor.
--- NOTE | 2020-09-17 15:01 | P.PN_ITS ---
Internal Medicine - PN: Subj *Date: 09/17/20 *Time: 15:01 Interval history: POD #1 CHARIS No unusual complaints Tolerating regular diet, ambulating and voiding without difficulty Exam Vital signs and Labs for Last 24 Hours: Temp Pulse Resp BP Pulse Ox 99.6 F 88 16 136/87 96 09/17/20 08:36 09/17/20 08:36 09/17/20 08:00 09/17/20 08:36 09/17/20 08:00 Laboratory Results - last 24 hr 09/17/20 06:25: WBC 8.0 D, RBC 3.55 L, Hgb 11.6 L, Hct 36.7 L, MCV 103.3 H, MCH 32.8 H, MCHC 31.7 L, RDW 13.0, Plt Count 230, MPV 7.6, Neut % (Auto) 78.2, Lymph % (Auto) 14.9, [place] % (Auto) 6.4, Eos % (Auto) 0.2, Baso % (Auto) 0.2, Neut # (Auto) 6.2, Lymph # (Auto) 1.2, [place] # (Auto) 0.5, Eos # (Auto) 0.0, Baso # (Auto) 0.0 09/17/20 06:25: Sodium 137, Potassium 4.0, Chloride 102, Carbon Dioxide 31 H D, Anion Gap 8.0, BUN 15, Creatinine 0.60 D, Estimated Creat Clear 123, Estimated GFR 107, Est GFR ( Amer) 129 D, Glucose 86, Calcium 9.4 I & O for Last 24 hours: Intake & Output 09/15/20 09/16/20 09/17/20 09/18/20 11:59 11:59 11:59 11:59 Intake Total 1600 / 1600 2590 / 2590 240 / 240 Output Total 400 / 400 4050 / 4300 250 / 250 Balance 1200 / 1200 -1460 / -1710 -10 / -10 Narrative: CONSTITUTIONAL: no acute distress HEENT: mucous membranes moist PULMONARY: breathing unlabored without audible wheezes CV: no tachycardia or visible JVD; normal LE peripheral pulses ABD: soft, ND; appropriately tender but no rebound/guarding SKIN: incision well approximated with no drainage, erythema or induration EXT: no edema LEs NEURO: alert/oriented, no altered mental status PSYCH: appropriate mood and demeanor without anxiety/depression Assessment and Plan (1) Heavy menses Status: Acute Category: Medical Code(s): N92.0 - Excessive and frequent menstruation with regular cycle (2) Bulky or enlarged uterus Status: Acute Category: Medical Code(s): N85.2 - Hypertrophy of uterus (3) Uterine fibroid Status: Acute Category: Medical Code(s): D25.9 - Leiomyoma of uterus, unspecified - Assessment and plan all Dx Assessment and Plan for all problems:: Continue routine postop care
[2020-09-17 16:00] VITALS: BP 144/86; PULSE 61; RESP 18; TEMP 36.5; O2SAT 100
--- NOTE | 2020-09-17 16:03 | PC.NURSE ---
Routine reassessment completed. LTV Incision REAL, IV in RFA patent and infusing well. Swelling noted to right hand from IV infiltration, Encouraged elevating on pillow. no further acute changes noted from previous assessment. Pt. up to bathroom, voided 600ml, Pt. ambulating well independently. Pt. reports pain is tolerable. Pt. denies needs, will continue to monitor.
--- NOTE | 2020-09-17 19:09 | PC.NURSE ---
Report given to Deedee Zabala RN.
[2020-09-17 20:00] VITALS: BP 140/84; PULSE 66; RESP 18; TEMP 36.6; O2SAT 100
[2020-09-18 03:55] VITALS: BP 137/90; PULSE 71; RESP 17; TEMP 36.5; O2SAT 98
--- NOTE | 2020-09-18 04:00 | PC.NURSE ---
Pt has slept in intervals this shift. A&O x4, BLT lungs CTA, bowel sounds present in all 4 quadrants, Pt Iv patent, Pt medicated per MAR for pain during this shift, Pt denies SOA, n/v, or headache. Pt requires no assistance to the restroom. ICP thigh high in place
[2020-09-18 08:10] VITALS: BP 115/76; PULSE 88; RESP 18; TEMP 36.5; O2SAT 98
--- NOTE | 2020-09-18 08:24 | PC.NURSE ---
0810 Incisional care performed at time of AM assessment. LTV incision cleaned with 1/2 strength hydrogen peroxide and sterile water, tolerated well by pt. Incision C/D/I with preethi, no s/s infection. Pt educated on surgical site infections and cleaning incision, v/u.
--- NOTE | 2020-09-18 11:19 | HMH.ACPN2 ---
Internal Medicine - PN: Subj *Date: 09/18/20 *Time: 11:19 Interval history: POD #2 CHARIS no unusual complaints tolerating regular diet ambulating and voiding without difficulty planning discharge home tomorrow Exam Vital signs and Labs for Last 24 Hours: Temp Pulse Resp BP Pulse Ox 97.7 F 88 18 115/76 98 09/18/20 08:10 09/18/20 08:10 09/18/20 08:10 09/18/20 08:10 09/18/20 08:10 I & O for Last 24 hours: Intake & Output 09/15/20 09/16/20 09/17/20 09/18/20 11:59 11:59 11:59 11:59 Intake Total 1600 / 1600 2590 / 2590 600 / 600 Output Total 400 / 400 4050 / 4300 2500 / 2500 Balance 1200 / 1200 -1460 / -1710 -1900 / -1900 Narrative: CONSTITUTIONAL: no acute distress HEENT: mucous membranes moist PULMONARY: breathing unlabored without audible wheezes CV: no tachycardia or visible JVD; normal LE peripheral pulses ABD: soft, ND; appropriately tender but no rebound/guarding SKIN: incision well approximated with no drainage, erythema or induration EXT: no edema LEs NEURO: alert/oriented, no altered mental status PSYCH: appropriate mood and demeanor without anxiety/depression Assessment and Plan (1) Heavy menses Status: Acute Category: Medical Code(s): N92.0 - Excessive and frequent menstruation with regular cycle (2) Bulky or enlarged uterus Status: Acute Category: Medical Code(s): N85.2 - Hypertrophy of uterus (3) Uterine fibroid Status: Acute Category: Medical Code(s): D25.9 - Leiomyoma of uterus, unspecified - Assessment and plan all Dx Assessment and Plan for all problems:: Continue routine postop care anticipate discharge home tomorrow
[2020-09-18 12:00] VITALS: BP 127/82; PULSE 83; RESP 17; TEMP 36.7; O2SAT 97
[2020-09-18 16:30] VITALS: BP 131/84; PULSE 75; RESP 18; TEMP 36.5; O2SAT 96
--- NOTE | 2020-09-18 16:39 | PC.NURSE ---
1630 RN reassessment completed at this time, no acute changes from AM assessment. Pt has received PRN pain medication this shift for C/O pain at incision site with good relief. Abd soft and nontender with BS active in all quads. Pt is tolerating a regular diet well with no N/V. Pt reports passing flatus and voiding without difficulty, no BM since surgery. Lung sounds CTA. VSS. LTV incision is C/D/I with preethi, REAL at this time. Visitor at bedside talking with pt at this time, no needs/concerns voiced from pt. Will continue to monitor.
[2020-09-18 20:00] VITALS: BP 135/89; PULSE 67; RESP 16; TEMP 36.6; O2SAT 97
[2020-09-19 04:00] VITALS: BP 115/78; PULSE 74; RESP 17; TEMP 36.3; O2SAT 99
--- NOTE | 2020-09-19 04:31 | PC.NURSE ---
Pt has slept in intervals during this shift. Pt A&O x4, BLT lungs CTA, bowel sounds present in all 4 quadrants, Pt on RA, IV patents, Pt medicated per MAR for pain. Pt denies SOA, Headache, or N/V. Low transverse incision REAL preethi C/D/I
--- NOTE | 2020-09-19 07:00 | PC.NURSE ---
Report received from Deedee Zabala RN. pt brought breakfast tray at this time. denies any needs.
[2020-09-19 08:00] VITALS: BP 119/80; PULSE 83; RESP 18; TEMP 36.8; O2SAT 98
--- NOTE | 2020-09-19 08:28 | PC.NURSE ---
PT ASSESSED AT THIS TIME. BILATERAL LUNG SOUNDS CLEAR, NO EDEMA NOTED. INCISION IS C/D WITH FELTON INTACT. PT STATES SHE IS PASSING GAS BUT NO BM YET. PT MEDICATED PER EMAR FOR PAIN 5/ R/T INCISIONAL PAIN. PT HAS ALREADY ATE BREAKFAST AND TAKEN A SHOWER THIS AM. PT GIVEN A STOOL SOFTNER R/T NARCOTIC PAIN MEDICATION. PT DENIES ANY FURTHER NEEDS. WILL CONTINUE TO OBSERVE.
[2020-09-19 12:00] VITALS: BP 127/81; PULSE 74; RESP 18; TEMP 36.7; O2SAT 100
--- NOTE | 2020-09-19 13:57 | HMH.DCSUM ---
General - General Admission date:: 09/16/20 Discharge date: 09/19/20 HPI HPI: 50 yo with heavy menstrual bleeding and enlarged uterus multiple multiple fibroids admitted for definitive surgical management with hysterectomy s/p CHARIS, umcomplicated postop course uneventful, with discharge home on POD #3 Tolerating regular diet Ambulating and voiding without difficulty Pain control sufficient Objective Vital signs: Temp Pulse Resp BP Pulse Ox 98.0 F 74 18 127/81 100 09/19/20 12:00 09/19/20 12:00 09/19/20 12:00 09/19/20 12:00 09/19/20 12:00 Narrative: CONSTITUTIONAL: no acute distress HEENT: mucous membranes moist PULMONARY: breathing unlabored without audible wheezes CV: no tachycardia or visible JVD; normal LE peripheral pulses ABD: soft, ND; appropriately tender but no rebound/guarding SKIN: incision well approximated with no drainage, erythema or induration EXT: no edema LEs NEURO: alert/oriented, no altered mental status PSYCH: appropriate mood and demeanor without anxiety/depression DS: Diagnosis - Discharge Diagnosis (1) Heavy menses Status: Acute (2) Bulky or enlarged uterus Status: Acute (3) Uterine fibroid Status: Acute Discharge Plan - Patient Discharge Instructions ACTIVITY: Continue current activity DIET: regular diet Additional Instructions: No strenuous activity No heavy lifting. NOTHING in the vagina for 6 weeks. Patient Instructions: How to Care for a Surgical Wound, Hysterectomy -- Open Surgery, DI for Hysterectomy, Preventing the Spread of Coronavirus Discharge Instructions - Follow up Plan Follow up with: Florence Lala MD [Staff Physician] - Disposition: Home, Self-Half-Way Medications: Home Medications Medication Instructions Recorded Confirmed Type Aspirin [Low Dose Aspirin EC] 81 mg PO DAILY 09/10/20 09/16/20 History Atorvastatin Calcium [Lipitor 20mg 20 mg PO HS 09/10/20 09/16/20 History Tab] Cholecalciferol (Vitamin D3) 1,000 unit PO DAILY 09/10/20 09/16/20 History [Vitamin D3 1,000 Unit Cap] Duloxetine HCl [Cymbalta] 60 mg PO DAILY 09/10/20 09/16/20 History Ergocalciferol (Vitamin D2) 1 each PO WEEKLY 09/10/20 09/16/20 History [Drisdol] Ibuprofen 800 mg PO BID 09/10/20 09/16/20 History Losartan/Hydrochlorothiazide 1 tab PO DAILY 09/10/20 09/16/20 History [Losartan-Hctz 50-12.5 mg Tab] Nystatin [Nystatin Cr 100,000 1 applic TOPICAL DAILY 09/10/20 09/16/20 History Units/GM 30GM] Quetiapine Fumarate 150 mg PO HS 09/10/20 09/16/20 History Valacyclovir HCl [Valacyclovir] 1,000 mg PO BID 09/10/20 09/16/20 History Hydrocod/Acet 5/325 mg [[place] 1 tab PO Q8HP PRN 09/16/20 09/16/20 History 5/325mg tablet] Oxycodone HCl [OxyIR 5mg tablet] 5 mg PO Q6HP PRN #30 tablet 09/19/20 Rx Prescriptions/Medication Reconciliation: New Acetaminophen [Acetaminophen 325mg tab] 650 mg PO Q4HP PRN tablet PRN Reason: Mild Pain Oxycodone HCl [OxyIR 5mg tablet] 5 mg PO Q6HP PRN #30 tablet PRN Reason: Moderate Pain Continued Quetiapine Fumarate 150 mg PO HS Nystatin [Nystatin Cr 100,000 Units/GM 30GM] 1 applic TOPICAL DAILY Ergocalciferol (Vitamin D2) [Drisdol] 1 each PO WEEKLY Aspirin [Low Dose Aspirin EC] 81 mg PO DAILY Valacyclovir HCl [Valacyclovir] 1,000 mg PO BID Ibuprofen 800 mg PO BID Duloxetine HCl [Cymbalta] 60 mg PO DAILY Cholecalciferol (Vitamin D3) [Vitamin D3 1,000 Unit Cap] 1,000 unit PO DAILY Atorvastatin Calcium [Lipitor 20mg Tab] 20 mg PO HS Losartan/Hydrochlorothiazide [Losartan-Hctz 50-12.5 mg Tab] 1 tab PO DAILY Hydrocod/Acet 5/325 mg [[place] 5/325mg tablet] 1 tab PO Q8HP PRN PRN Reason: PAIN - Problem Reconciliation Problems Reviewed?: Yes
--- NOTE | 2020-09-19 16:00 | PC.NURSE ---
INCISION CLEANED AT THIS TIME. FELTON REMOVED AND STERI STRIPS APPLIED. IV DC'D. DC INSTRUCTIONS GONE OVER WITH PT AT THIS TIME. QUESTIONS ENCOURAGED AND ANSWERED. PT KEVIN.
--- NOTE | 2020-09-19 16:05 | PC.NURSE ---
PT AMBULATED OFF UNIT AT THIS TIME ASSISTED X1 [facility] STAFF.
== END 2020-09-19 16:05 | disposition home or self-care (01) | DRG 743 ==
LOC: OB 07:25
PROVIDERS: Admitting Provider Obstetrics & Gynecology; PCP Physician Assistant; Visit Provider Obstetrics & Gynecology
PROC: 0UT90ZZ Resection of Uterus, Open Approach (ICD-10-PCS; CPT 58150; principal; 2020-09-16 08:30)
DX: D25.2 Subserosal leiomyoma of uterus (principal); N93.8 Other specified abnormal uterine and vaginal bleeding; N85.2 Hypertrophy of uterus; E78.5 Hyperlipidemia, unspecified; F41.8 Other specified anxiety disorders; Z79.899 Other long term (current) drug therapy
CPT/HCPCS: 58150; 80048; 81001; 85025; 94761; 96374; G0283; J0670; J2405; J2710

== ENCOUNTER → 2021-07-15 09:05 | Outpatient (CLI) | payer OTHER, SELFPAY | PROVIDERS: Visit Provider Nurse Practitioner | DX: U07.1 COVID-19 (principal) | CPT/HCPCS: C9803; U0003; U0005 ==

== ENCOUNTER → 2021-11-04 11:29 | Outpatient (CLI) | payer OTHER, SELFPAY ==
--- NOTE | 2021-11-04 11:34 | XR_ITS ---
FINAL REPORT CLINICAL HISTORY: right knee pain FINDINGS: Three views of the right knee reveal no evidence of fracture or dislocation. The bony alignment is normal. The joint spaces are preserved. There is no evidence of joint effusion. No localized soft tissue abnormality is identified. IMPRESSION: No acute abnormality identified. Reviewed, Interpreted and Dictated by Nile Rankin III, MD Transcribed by Diego Edwards Authenticated by Nile Rankin III, MD on 11/04/2021 01:21:[address] [facility]
== END ==
PROVIDERS: PCP Physician Assistant; Visit Provider Physician Assistant
DX: M25.561 Pain in right knee (principal)
CPT/HCPCS: 73562

== ENCOUNTER → 2021-12-15 10:10 | Outpatient (CLI) | payer OTHER, SELFPAY ==
--- NOTE | 2021-12-15 10:10 | MM_ITS ---
PROCEDURE INFORMATION: Exam: MG Bilateral Screening 3D Mammography Exam date and time: 12/15/2021 10:15 AM Age: 51 years old Clinical indication: Screening examination TECHNIQUE: Imaging protocol: Bilateral Screening tomosynthesis and 2D mammography including computer-aided detection (CAD) when performed. COMPARISON: 1. MG MM DIG SCREENING MAMM BI W/CAD 09/09/2020 8:56 AM 2. MG MA MAMMO SCRN DIGITL BILAT 10/02/2015 9:35 AM FINDINGS: MAMMOGRAPHY: Breast composition: The breasts are heterogeneously dense, which may obscure small masses. Mass: None. Architectural distortion: None. Calcifications: No suspicious calcifications. Asymmetric density: None. Skin thickening: None. Axillary adenopathy: None. IMPRESSION: No mammographic evidence of malignancy. Annual screening is recommended unless otherwise clinically indicated. ASSESSMENT: BI-RADS Category 1: Negative
== END ==
PROVIDERS: PCP Physician Assistant; Visit Provider Obstetrics & Gynecology
DX: Z12.31 Encounter for screening mammogram for malignant neoplasm of breast (principal)
CPT/HCPCS: 77063; 77067

== ENCOUNTER → 2022-07-08 11:35 | Outpatient (CLI) | payer OTHER, SELFPAY ==
[2022-07-08 15:13] LABS: Adenovirus,PCR Not Detected (NotDetected); Bordetella Pertussis Not Detected (NotDetected); Chlamydophila Pneumoniae, PCR Not Detected (NotDetected); Coronavirus 19, PCR Not Detected (NotDetected); Coronavirus 229E Not Detected (NotDetected); Coronavirus NL63 Not Detected (NotDetected); Coronavirus OC43 Not Detected (NotDetected); Coronovirus HKU1,PCR Not Detected (NotDetected); Human Metapneumovirus Not Detected (NotDetected); Influenza A, PCR Not Detected (NotDetected); Influenza AH1, 2009 Not Detected (NotDetected); Influenza AH1, PCR Not Detected (NotDetected); Influenza AH3,PCR Not Detected (NotDetected); Influenza B, PCR Not Detected (NotDetected); Mycoplasma Pneumoniae, PCR Not Detected (NotDetected); Parainfluenza 1, PCR Not Detected (NotDetected); Parainfluenza 2, PCR Not Detected (NotDetected); Parainfluenza 3, PCR Not Detected (NotDetected); Parainfluenza 4, PCR Not Detected (NotDetected); Respiratory Syncytial Virus Not Detected (NotDetected); Rhinovirus/Enterovirus Not Detected (NotDetected)
== END ==
PROVIDERS: PCP Nurse Practitioner Family; Visit Provider Nurse Practitioner Family
DX: J98.8 Other specified respiratory disorders (principal); R50.9 Fever, unspecified; J02.9 Acute pharyngitis, unspecified
CPT/HCPCS: 87581; 87632; 87798; C9803; U0003; U0005

== ENCOUNTER 2022-09-07 18:08 | Emergency (ER) | payer OTHER, SELFPAY ==
[2022-09-07 18:14] VITALS: BP 138/89; PULSE 97; RESP 17; TEMP 37.2; O2SAT 99; BMI 27.8
--- NOTE | 2022-09-07 18:51 | HMH.EDGENADL ---
Discharge Plan Disposition Patient Disposition: Home, Self-Care Prescriptions Prescriptions: New ondansetron 4 mg tablet,disintegrating 4 mg PO Q6H PRN (Reason: nausea and vomiting) 5 Days Qty: 20 0RF No Action atorvastatin 20 mg tablet See Rx Instructions .ROUTE .COMPLEX Rx Instructions: TAKE ONE TABLET BY MOUTH AT BEDTIME FOR CHOLESTEROL dextroamphetamine-amphetamine 30 mg tablet 30 mg PO TID Rx Instructions: administer doses at least 4-6 hours apart ergocalciferol (vitamin D2) 1,250 mcg (50,000 unit) capsule See Rx Instructions .ROUTE .COMPLEX Rx Instructions: TAKE ONE CAPSULE BY MOUTH ONCE a WEEK FOR supplement losartan-hydrochlorothiazide 50-12.5 mg tablet See Rx Instructions .ROUTE .COMPLEX Rx Instructions: TAKE ONE TABLET BY MOUTH DAILY FOR hypertension duloxetine 60 mg capsule,delayed release(DR/EC) See Rx Instructions .ROUTE .COMPLEX Rx Instructions: TAKE ONE CAPSULE BY MOUTH EVERY DAY FOR ANXIETY quetiapine 400 mg tablet See Rx Instructions .ROUTE .COMPLEX Rx Instructions: TAKE ONE TABLET BY MOUTH EVERY DAY AT BEDTIME cholecalciferol (vitamin D3) 25 mcg (1,000 unit) tablet See Rx Instructions .ROUTE .COMPLEX Rx Instructions: TAKE ONE TABLET BY MOUTH EVERY DAY --TAKE WITH FOOD-- aspirin 81 MG tablet,delayed release (DR/EC) 81 mg PO DAILY Referrals Follow up/Referrals: Gilbert Gaines MD [Primary Care Provider] - See instructions Clinical Impressions Clinical Impression: Nausea vomiting and diarrhea Instructions Patient Instructions: DI for Diarrhea and Traveler's Diarrhea -- Adult, DI for Diarrhea and Traveler's Diarrhea -- Child, DI for Nausea -- Adult, DI for Nausea -- Child Discharge ED Provider: Jacinda Lala General Adult HPI General Chief complaint: Nausea/Vomiting/Diarrhea Stated complaint: possible food posioning Time Seen by Provider: 09/07/22 18:51 Mode of Arrival: Ambulatory Limitations: No Limitations Description of Symptoms (Recalled from ER Triage Doc. by RN): pt to ED with nausea, vomiting and diarrhea since 7am this morning. pt denies any abd. pain and reports that the pain feels like food poisoning she has had before or a stomach bug. History of Present Illness HPI narrative: Patient is a 52-year-old female presenting with nausea vomiting and diarrhea. States this began suddenly at 7 AM this morning she was the urgent treatment clinic and they sent her over to the emergency department for IV fluids. She states that she has had nonbloody nonbilious emesis also no blood in her bowel movements. States she has had some crampy abdominal pain. She thinks that this is food poisoning however no one around her has eaten similar foods is having the same symptoms. She denies any fevers or any other sick contacts. She says her number of vomiting and diarrhea episodes of been too numerous to count. She was not even able to tolerate ice at home. Related Data Home Medications Medication Instructions Recorded Confirmed aspirin 81 mg tablet,delayed 81 mg PO DAILY [facility] 09/10/20 09/07/22 release atorvastatin 20 mg tablet See Rx Instructions .Route 09/07/22 09/07/22 .COMPLEX Cholesterol cholecalciferol (vitamin D3) 25 See Rx Instructions .Route 09/07/22 09/07/22 mcg (1,000 unit) tablet .COMPLEX Supplement dextroamphetamine-amphetamine 30 30 mg PO TID Mood 09/07/22 09/07/22 mg tablet duloxetine 60 mg capsule,delayed See Rx Instructions .Route 09/07/22 09/07/22 release .COMPLEX Mood ergocalciferol (vitamin D2) 1,250 See Rx Instructions .Route 09/07/22 09/07/22 mcg (50,000 unit) capsule .COMPLEX Supplement losartan 50 mg-hydrochlorothiazide See Rx Instructions .Route 09/07/22 09/07/22 12.5 mg tablet .COMPLEX Blood pressure quetiapine 400 mg tablet See Rx Instructions .Route 09/07/22 09/07/22 .COMPLEX Mood Previous Rx's Medication Instructions Recorded ondansetr
--- NOTE | 2022-09-07 19:22 | PC.NURSE ---
Straight stick for all labs to redraw. Sent per order. Patient resting, NAD
[2022-09-07 19:37] LABS: Basophils % 0.3 % (0.1-2.0); Eosinophils % 0.2 % (0.1-12.0); Hematocrit 42.1 % (37.0-47.0); Hemoglobin 13.9 g/dL (12.2-16.2); Lymphocytes # 0.2 K/mm3 (0.7-4.5); Lymphocytes % 3.5 % (10-50); Mean Corpuscular HGB Conc 32.9 g/dL (31.8-35.4); Mean Corpuscular Hemoglobin 32.1 pg (27.0-31.2); Mean Corpuscular Volume 97.4 fl (81-99); Mean Platelet Volume 7.4 fl (7.4-10.4); Monocytes # 0.1 K/mm3 (0.1-1.0); Monocytes % 2.4 % (1.7-9.3); Neutrophils # 4.9 K/mm3 (1.8-7.8); Neutrophils % 93.6 % (37.0-80.0); Platelet Count 298 K/mm3 (142-424); Red Blood Count 4.32 M/mm3 (4.20-5.40); Red Cell Distribution Width 12.7 % (11.5-17.5); White Blood Count 5.3 K/mm3 (4.8-10.8)
--- NOTE | 2022-09-07 19:45 | PC.NURSE ---
Patient will be given take home packs of Phenergan PO and Suppository. Instructed to use suppository if unable to tolerate PO
[2022-09-07 19:47] LABS: MANUAL DIFFERENTIAL MANUAL DIFFERENTIAL (MANUAL DIFF)
[2022-09-07 19:48] LABS: Alanine Aminotransferase 24 U/L (12-78); Albumin Level 4.2 g/dl (3.5-5.0); Albumin/Globulin Ratio 1.7 (1.1-1.8); Alkaline Phosphatase 93 U/L (38-126); Anion Gap 13.4 mEq/L (5-15); Aspartate Amino Transferase 27 U/L (14-36); Bilirubin,Total 0.5 mg/dl (0.2-1.3); Blood Urea Nitrogen 20 mg/dl (7-17); Calcium 8.5 mg/dl (8.4-10.2); Carbon Dioxide 20 mmol/L (22.0-30.0); Chloride 103 mmol/L (98-107); Creatinine Clearance Estimated 130 mL/min (50-200); Estimated Glomerular Filt Rate 106 ml/min (>60); GFR (African American) 128 ML/MIN (>60); Globulin 2.5 g/dL (1.3-3.2); Glucose 138 mg/dl (74-100); Lipase 32 U/L (23-300); Potassium 3.4 mmoL/L (3.5-5.1); Sodium 133 mmol/L (136-145); Total Protein,Serum 6.7 g/dl (6.3-8.2)
[2022-09-07 19:56] VITALS: BP 130/67; PULSE 67; RESP 17; TEMP 36.8; O2SAT 97
[2022-09-07 20:24] LABS: Monocytes % 1 % (2-9); Neutrophils % 98 % (42-76); Platelet Estimate Normal; RBC Morphology Normal; Total Cells Counted 100
== END 2022-09-07 19:57 | disposition home or self-care (01) ==
LOC: UTC 18:18 → ER 18:46
PROVIDERS: Emergency Provider Student in an Organized Health Care Education/Training Program; PCP Emergency Medicine
DX: R11.2 Nausea with vomiting, unspecified (principal); R19.7 Diarrhea, unspecified; F90.9 Attention-deficit hyperactivity disorder, unspecified type; F32.A Depression, unspecified; E78.5 Hyperlipidemia, unspecified; E55.9 Vitamin D deficiency, unspecified; M19.90 Unspecified osteoarthritis, unspecified site; Z87.891 Personal history of nicotine dependence
CPT/HCPCS: 80053; 83690; 85007; 85025; 96361; 96374; 99284; 99285; J2405

== ENCOUNTER → 2022-09-30 09:45 | Outpatient (CLI) | payer OTHER, SELFPAY ==
[2022-09-30 18:52] LABS: Amphetamine/Metha Screen,Urine Positive ng/ml (<1000)
[2022-09-30 18:53] LABS: Barbiturates Screen,Urine Negative ng/ml (<200); Benzodiazepines Screen,Urine Positive ng/ml (<200)
[2022-09-30 18:54] LABS: Cannabinoid Screen,Urine Negative ng/ml (<50)
[2022-09-30 18:55] LABS: Cocaine Screen,Urine Negative ng/ml (<300); Methadone Screen,Urine Negative ng/ml (<300)
[2022-09-30 18:56] LABS: Opiate Screen,Urine Negative ng/ml (<300)
[2022-09-30 18:57] LABS: Phencyclidine Screen,Urine Negative ng/ml (<25)
== END ==
PROVIDERS: PCP Nurse Practitioner Family; Visit Provider Nurse Practitioner Family
DX: Z79.899 Other long term (current) drug therapy (principal)
CPT/HCPCS: 80305

== ENCOUNTER 2022-12-23 08:00 | Outpatient (RCR) | payer OTHER, SELFPAY ==
--- NOTE | 2022-12-14 10:57 | HMH.PTOPEV ---
PT Outpatient Evaluation Rehab PT Outpatient Evaluation Start: 12/14/22 10:42 Freq: Status: Active Protocol: Document 12/14/22 10:42 SARAN (Rec: 12/14/22 10:57 SARAN [id number]) E-signed By Mamadou Bazzi, PT Outpatient Therapy Subjective History Subjective History Pt reports h/o chronic left hip pain beginning insidiously ~6 months ago. Pt reports lateral aspect left hip around greater trochanter, has increased over the last couple months with referred pain down lateral thigh area, as well as intermittent falls when ambulating up stairs d/t pain. Pt reports recent improvement in pain level with steroid meds, 'it's got it feeling better, which has me moving better while I'm cleaning.' Chief Complaint Pain,Stiff Symptom Type Ache,Sharp,Dull Symptoms Relieved By Rest/Positioning,Prescription Meds Symptoms Aggravated By Sitting,Standing,Physical Activity,Walking Prior Functional Limitations Housework,Standing,Walking, Stairs Current Functional Limitations Housework,Standing,Walking, Stairs Symptom Description Constant but Variable Level of pain today (0-10) 1 Pain scale - at its best (0-10) 1 Pain scale - at its worst (0-10) 8 Hip/Knee Eval Gait Observation General Gait Pattern Observation Antalgic Gait Assistive Device Assistive Devices None / NA Palpation Tenderness left Knee Palpation Overall Comment grt tro. 3/4 Hip Palpation Findings Tenderness MMT Hip Flexion Strength Grade 4- Good- Hip Abduction Strength Grade 4- Good- Hip Adduction Strength Grade 4 Good Hip Extension Strength Grade 4 Good Hip External Rotation Strength Grade 3+ Fair+ Hip Internal Rotation Strength Grade 4- Good- Knee Extension Strength Grade 4 Good Knee Flexion Strength Grade 4- Good- ROM Hip Flexion w/Knee Extended Passive 0-50 Range of Motion (degrees) Hip External Rotation Passive Range of 0-35 Motion (degrees) Hip Internal Rotation Passive Range of 0-20 Motion (degrees) Hip ROM Limitations Soft Tissue Tightness,Pain Special Tests Hip Piriformis Test Negative Left Sciatic Nerve Tension Test Negative Left Hip
== END 2022-12-23 08:05 | disposition home or self-care (01) ==
LOC: PT 08:00
PROVIDERS: PCP Nurse Practitioner Family; Referring Provider Physician Assistant; Visit Provider Physician Assistant
DX: M25.552 Pain in left hip (principal)
CPT/HCPCS: 97010; 97014; 97035; 97110; 97163; G0283

== ENCOUNTER → 2023-01-05 10:30 | Outpatient (CLI) | payer OTHER, SELFPAY ==
--- NOTE | 2023-01-05 10:35 | XR_ITS ---
FINAL REPORT CLINICAL HISTORY: left hip pain COMPARISON: None FINDINGS: LEFT HIP: Two views of the left hip demonstrate no acute fracture or dislocation. The joint spaces appear normal. The visualized bony structures are well aligned. No soft tissue abnormality is seen. IMPRESSION: No acute bony abnormality. Reviewed, Interpreted and Dictated by Nile Rankin III, MD Transcribed by Cinthia Veronica Authenticated and [facility]
== END ==
PROVIDERS: PCP Physician Assistant; Visit Provider Physician Assistant
DX: M25.552 Pain in left hip (principal)
CPT/HCPCS: 73502

== ENCOUNTER → 2023-01-14 16:20 | Outpatient (CLI) | payer OTHER, SELFPAY ==
--- NOTE | 2023-01-14 16:21 | MR_ITS ---
PROCEDURE INFORMATION: Exam: MR Left Lower Extremity Joint Without Contrast; Hip Exam date and time: 01/14/2023 4:22 PM Age: 52 years old Clinical indication: Pain; Hip; Left; Additional info: Left hip pain. Hip pain when walkng. Pain for 9 months. No injury or trauma TECHNIQUE: Imaging protocol: Magnetic resonance imaging of the left lower extremity joint without contrast. Exam focused on the hip. Sequences: Coronal and axial large field of view sequences include the pelvis and both the left and right hips. Additional sequences are focused on the symptomatic hip. COMPARISON: CR XR HIP LT 2-3V W/PELVIS 01/05/2023 11:05 AM FINDINGS: Bones/joints: There is no acute fracture or dislocation. No aggressive bone lesions are present. There is no significant degenerative change. Labrum: Abnormal signal and morphology of the anterosuperior left hip labrum is consistent with a labral tear (series 7/images 12-13). Bursae: A mild amount of fluid is present in each greater trochanteric bursa. TENDONS: Tendons of iliopsoas group: Unremarkable. No evidence of tear. Tendons of medial compartment of thigh: Unremarkable. No evidence of tear. Tendons of lateral rotators of hip: Unremarkable. No evidence of tear. Tendons of gluteal group: Mild tendinosis involves the left gluteus minimus tendon. Each gluteus minimus tendon inserts on greater trochanter enthesophytes. Tendons of posterior compartment of thigh: Low-grade partial-thickness tearing involves the left hamstring tendon complex at the origin. Soft tissues: Vive-so-jxrwdwth soft tissue edema surrounds the bilateral hamstring tendon suggesting inflammation. Severe atrophy involves the bilateral gluteus minimus muscles and the contralateral right gluteus medius muscle. Enthesopathic changes involving the bilateral greater trochanters suggest remote injury to the gluteal tendons. Mild edema within the contralateral right quadratus femoris muscle has no associated narrowing of the ischiofemoral space but could indicate ischiofemoral impingement or muscle strain. IMPRESSION: 1. Anterosuperior left hip labral tear. 2. Low-grade partial-thickness tear of the left hamstring tendon complex at the ischial origin with edema around the bilateral hamstring tendon suggesting inflammation. 3. Mild bilateral greater trochanteric bursitis. 4. Severe bilateral gluteus minimus and contralateral right gluteus medius muscle atrophy. 5. Mild left gluteus minimus tendinosis. 6. Remote injury of the gluteus minimus tendons that insert on greater trochanter enthesophytes. 7. Contralateral right quadratus femoris mild muscle edema, suggestive of ischiofemoral impingement or muscle strain.
== END ==
LOC: RAD 16:20
PROVIDERS: PCP Physician Assistant; Visit Provider Physician Assistant
DX: M25.552 Pain in left hip (principal)
CPT/HCPCS: 73721

== ENCOUNTER → 2023-01-29 14:52 | Outpatient (CLI) | payer OTHER, SELFPAY ==
--- NOTE | 2023-01-29 14:53 | MR_ITS ---
FINAL REPORT CLINICAL HISTORY: atrophy of muscles LEFT HIP PAIN COMPARISON: None FINDINGS: Multiplanar MR imaging of the lumbar spine was performed without contrast. On the sagittal T2-weighted images, disc degeneration is seen at multiple levels. There are degenerative endplate changes at multiple levels. The vertebral alignment is normal. There is no evidence of fracture. No bony mass is identified. The conus has an unremarkable appearance. L1-2: There is no significant canal stenosis or neural foraminal narrowing. L2-3: An annular bulge is present as well as facet osteoarthropathy. There is a right foraminal disc protrusion that produces moderate right and mild left neural foraminal narrowing. There is no significant canal stenosis present. L3-4: An annular bulge is present as well as facet osteoarthropathy. There is mild bilateral neural foraminal narrowing without evidence of canal stenosis. L4-5: An annular bulge is present as well as facet osteoarthropathy. There is a small left foraminal disc protrusion and moderate bilateral neural foraminal narrowing. No significant canal stenosis is present. L5-S1: An annular bulge is present with facet osteoarthropathy and osteophytes. There is mild right and moderate left neural foraminal narrowing. No significant canal stenosis is present. IMPRESSION: Multilevel degenerative disc disease and spondylosis as described. Reviewed, Interpreted and Dictated by Nile Rankin III, MD Transcribed by Cinthia Veronica Authenticated and [facility]
== END ==
PROVIDERS: PCP Physician Assistant; Visit Provider Physician Assistant
DX: M62.50 Muscle wasting and atrophy, not elsewhere classified, unspecified site (principal); M25.552 Pain in left hip
CPT/HCPCS: 72148; 76376

== ENCOUNTER → 2023-03-24 10:01 | Outpatient (POV) | payer OTHER, SELFPAY ==
--- NOTE | 2023-03-24 10:59 | EXP.PAIN.OV ---
HPI Data of Consult Patient: new to practice Consult date: 03/24/23 Requesting Physician: Lavinia Brito APRN Primary Care Provider: TACO Varghese Consult Narrative Reason for consult: Left hip pain, left leg pain History of present illness: Ms. Cobos is a 53 year old female who presents today as a new patient. She is a referral from Francisca Kam's office. Today she rates her pain a 6 out of 10. Patient describes her pain as a aching, throbbing sensation with occasional sharp shooting pains. Patient states this has been going on for approximately 2 years or more. She states that her kids have mentioned that she is limited for at least 2 years. Patient denies any specific trauma or injury that initially led to her symptoms. She does state that her pain is worse with increased activity or ambulation. She does state that she gets some improvement with resting or sitting. Patient has tried [id number] medications such as Tylenol and ibuprofen along with heat and ice with minimal relief. Patient has had physical therapy that did help some. Patient denies any previous surgery history. She did initially go to Dr. Briceño who did give her a bursa injection that did provide significant relief with some of her pains. She states that she has also gone to see Hal Brito for possible hip replacement and that at that time he was recommending stretching exercises and that she has a scheduled follow-up with him tomorrow. Patient does state that he was wanting to see if she got improvement with the stretching before deciding whether or not surgical intervention was needed. Patient is currently managed with [place] 5 mg twice a day from an outside provider. Patient denies any side effects from this medication. Her Raulito is [id number]. Its been reviewed and appropriate. CC: Lavinia Brito APRN [facility] Disclaimer: The information contained in this section may have been updated after the patient was seen, as this information can be updated by other users. 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 current occupational exposures/hazards: No caffeine: Yes Review of Systems Review of Systems Review of systems:: pertinent systems reviewed and negative unless documented below Review of systems (narrative): Review of Systems: General: No recent weight changes, no fever, no sleep disturbances Respiratory: No cough, no shortness of air, no recurring pulmonary infections Cardiovascular/peripheral vascular: No chest pain, no palpitations, no edema, no shortness of breath Gastrointestinal: No new onset incontinence, normal bowel movements reported Genitourinary: No new onset incontinence Musculoskeletal: Left hip pain Psychiatric: [Normal mood/affect] Neurological: [Denies weakness in extremities], [denies balance issues] Meds Home Medications and Allergies Home Medications Medication Instructions Recorded Confirmed Type cholecalciferol (vitamin D3) 25 See Rx Instructions .Route 10/26/22 03/22/23 Rx mcg (1,000 unit) tablet .COMPLEX #90 tabs losartan 50 mg-hydrochlorothiazide See Rx Instructions .Route 12/02/22 03/22/23 Rx 12.5 mg tablet .COMPLEX #90 tabs atorvastatin 20 mg tablet See Rx Instructions .Route 01/20/23 03/22/23 Rx .COMPLEX #90 tabs duloxetine 60 mg capsule,delayed See Rx Instructions .
[2023-03-24 12:18] VITALS: BP 142/95; PULSE 86; RESP 18; O2SAT 96; BMI 27.8
== END ==
PROVIDERS: PCP Physician Assistant; Visit Provider Nurse Practitioner Family
DX: M70.62 Trochanteric bursitis, left hip (principal); M25.552 Pain in left hip; G89.29 Other chronic pain
CPT/HCPCS: 99202; G0463

== ENCOUNTER 2023-04-06 12:49 | Day surgery (SDC) | payer OTHER, SELFPAY ==
[2023-04-06 12:58] VITALS: BP 148/91; PULSE 95; RESP 16; TEMP 36.3; O2SAT 98; BMI 27.4
[2023-04-06 13:15] VITALS: BP 142/98; PULSE 82; RESP 18; O2SAT 98
--- NOTE | 2023-04-06 13:15 | P.PCN_ITS ---
Procedure Date: 04/06/23 Time: 13:10 Anesthesiologist:: Irvin Saenz CRNA Complications:: None Pre-procedure Diagnosis:: DJD left hip. Chronic left hip pain. Post-procedure Diagnosis:: Same. Indications for Procedure:: Patient is a very pleasant 53-year-old female comes our clinic today for intra- articular left hip injection. Patient describes her left hip pain as constant, dull, aching. Pain intensifies with ambulation, abduction, flexion and extension. Patient has had 1 previous left intra-articular hip injection. Patient states injection helped moderately. She rates her pain 7/10. Procedure Details:: Details of the procedure were explained to the patient. The patient was taken to procedure room placed in the supine position. The area over the left hip was cleaned using chlorhexidine as a cleansing solution. Using fluoroscopy guidance a 3 and half inch 22-gauge spinal needle was used to access the left hip joint without difficulty. After negative aspiration 3 cc of 1% lidocaine +3 cc of 0.25% Marcaine and 40 mg of Depo-Medrol was injected. Needle was withdrawn. Band-Aid applied. Patient tolerated procedure without difficulty. There are no complications. Plan and Disposition:: Patient was discharged without incident.
== END 2023-04-06 13:15 | disposition home or self-care (01) ==
PROVIDERS: PCP Physician Assistant; Visit Provider Nurse Anesthetist, Certified Registered
DX: M16.12 Unilateral primary osteoarthritis, left hip (principal); M25.552 Pain in left hip; G89.29 Other chronic pain
CPT/HCPCS: 20610; 77002; J1040

== ENCOUNTER → 2023-04-28 13:26 | Outpatient (POV) | payer OTHER, SELFPAY ==
--- NOTE | 2023-04-28 13:55 | EXP.PAIN.SOA ---
[facility] Pain Management SOAP Note Subjective:: Patient is a pleasant 53-year-old female who presents today for follow-up of left hip intra-articular injection on 04/06/2023. We are currently treating the patient for low back pain, left hip pain, left leg pain. Today she states that she has not 0 improvement following the hip injection. She rates her pain a 7 out of 10. Patient denies any new trauma or injury. She does states she continues to have pain in and around her low back along the left side and into her left hip. Patient does describe this as an aching, throbbing sensation with numbness and tingling. Patient states it is worse with certain activities such as going up stairs or ambulation. Patient states the pain does interfere with her ability to perform activities of daily living. Patient has previously saw Dr. Anglin and Hal Brito however at this time she states that she recently canceled her other appointments and wanted to try more conservative treatment with our office. Patient does state that she is continued to do at home stretching and exercise techniques that were given to her from her orthospine surgeon however it does cause significant pain. Patient states that the compounded cream we last prescribed her did provide improvement. She states that she does also use a TENS unit at home every night and it helps provide additional relief. Her Raulito has been reviewed and is appropriate. Review of Systems: General: No recent weight changes, no fever, no sleep disturbances Respiratory: No cough, no shortness of air, no recurring pulmonary infections Cardiovascular/peripheral vascular: No chest pain, no palpitations, no edema, no shortness of breath Gastrointestinal: No new onset incontinence, normal bowel movements reported Genitourinary: No new onset incontinence Musculoskeletal: Low back pain left-sided, left hip pain Psychiatric: [Normal mood/affect] Neurological: [Denies weakness in extremities], [denies balance issues] Objective:: Physical Exam: General: Alert and oriented x3, no acute distress, pleasant and cooperative Lungs: Respirations even and unlabored, symmetrical chest expansion Eyes: PERRL Musculoskeletal: Flexion and extension of lumbar [spine] somewhat guarded secondary to pain, [antalgic gait noted] point tenderness along left SI and left greater trochanteric bursa with positive left Maximus's, Carol's, Gaenslen's, compression and distraction exam Neurological: Speech clear, no gross sensory deficit Assessment:: Low back pain, left hip pain, left sacroiliitis, left greater trochanteric bursitis Plan:: Patient continues to experience significant pain in her low back along the left side and into her left hip. Patient did have point tenderness along her left SI and left greater trochanteric bursa along with a positive left Maximus's, Carol's, Gaenslen's, compression and distraction exam. I have discussed with the patient that she may benefit from a left SI and left greater trochanteric bursa injection. Risk and benefits of these injections were explained to the patient and she would like to proceed forward with this plan of care. Patient has tried and failed conservative therapy such as oral medications, heat and ice, physical therapy, at home stretching and exercise for longer than 6 weeks. We will schedule the patient for a left SI and left bursa injection. Patient has been instructed to contact the clinic with any concerns before the next appointment. Dr. Gallegos has reviewed this note and agrees with this plan of care. This note was dictated using voice recognition software and make contain errors or omissions. [facility] Disclaimer: The information contained in this section may have been updated after the patient was seen, as this information can be updated by other users. Medical History Attention deficit hyperactivity disorder (ADHD) DDD (degenerative disc disease) De
[2023-04-28 14:46] VITALS: BP 136/58; PULSE 85; RESP 18; O2SAT 98; BMI 27.8
== END ==
LOC: SC.PAIN 13:27
PROVIDERS: PCP Physician Assistant; Visit Provider Nurse Practitioner Family
DX: M54.50 Low back pain, unspecified (principal); M25.552 Pain in left hip; M46.1 Sacroiliitis, not elsewhere classified; M70.62 Trochanteric bursitis, left hip
CPT/HCPCS: 99212; G0463

== ENCOUNTER 2023-05-11 11:50 | Day surgery (SDC) | payer OTHER, SELFPAY ==
[2023-05-11 11:59] VITALS: BP 141/96; PULSE 94; RESP 16; TEMP 36.4; O2SAT 98; BMI 27.9
--- NOTE | 2023-05-11 12:01 | P.PCN_ITS ---
Procedure Date: 05/11/23 Time: 12:00 Anesthesiologist:: Irvin Saenz CRNA Complications:: None Pre-procedure Diagnosis:: Left trochanteric bursitis. Left sacroiliitis. Post-procedure Diagnosis:: Same. Indications for Procedure:: Patient is a very pleasant 53-year-old female comes our clinic today for a left trochanteric bursa injection. As well as left sacroiliac joint injection. Patient has extreme point tenderness over the posterior hip as well as lateral hip area on the left. She describes the pain as constant, dull, aching, sharp, stabbing at times. She rates her pain 7/10. Procedure Details:: Procedure:Left trochanteric bursa injection under fluoroscopy We then moved to the left trochanteric bursa.~ C-arm fluoroscopy was used to view the left greater trochanter.~ The skin and subcutaneous tissues overlying the left greater trochanter were anesthetized using lidocaine, 1.5% and a 25- gauge needle.~ After this, a 22-gauge spinal needle was inserted and advanced until it contacted the left greater trochanter.~ Dye was injected and good spread was seen throughout the left trochanteric bursa. After this, approximately 5 mL of bupivacaine, 0.25% and Depo-Medrol, 40 mg was incrementally injected into the left trochanteric bursa.~ The patient tolerated the procedure well with no complications. Procedure: Left sacroiliac injection under fluoroscopy Informed consent was obtained and the risk and benefits of the procedure were explained to the patient.~ The patient was taken to the procedure room and noninvasive monitors were placed including noninvasive blood pressure cuff and pulse oximeter.~ The patient was placed prone on the procedure table.~ The~ left hip was cleansed using Betadine as a cleansing solution.~ C-arm fluorosocpy was used to view the left SI joint.~ The skin and subcutaneous tissues were an esthetized using Lidocaine 1.5% and a 25-gauge needle.~ After this, a 22-gauge spinal needle was inserted under fluoroscopic guidance into the inferior aspect of the left SI joint.~ Omnipaque dye was injected and a good spread was seen throughout the joint.~ After this, approximately 5 mL of bupivacaine 0.25% and Depo-Medrol 40 mg was incrementally injected into the sacroiliac joint.~ The patient tolerated the procedure well with no complications.~ The patient was observed in the Pain Clinic for a period of 30-45 minutes, then discharged home neurologically intact.~ Plan and Disposition:: Patient was discharged out incident.
[2023-05-11 12:03] VITALS: BP 146/55; PULSE 78; RESP 18; O2SAT 96
[2023-05-11 12:04] VITALS: BP 146/55; PULSE 81; RESP 18; O2SAT 95
[2023-05-11 12:07] VITALS: BP 131/92; PULSE 83; RESP 16; O2SAT 98
== END 2023-05-11 12:07 | disposition home or self-care (01) ==
PROVIDERS: PCP Physician Assistant; Visit Provider Nurse Anesthetist, Certified Registered
DX: M70.62 Trochanteric bursitis, left hip (principal); M46.1 Sacroiliitis, not elsewhere classified
CPT/HCPCS: 20610; 27096; 77002; G0260; J1030

== ENCOUNTER → 2023-05-31 09:58 | Outpatient (CLI) | payer OTHER, SELFPAY ==
--- NOTE | 2023-05-31 10:00 | MM_ITS ---
PROCEDURE INFORMATION: Exam: MG Bilateral Screening 3D Mammography Exam date and time: 05/31/2023 9:55 AM Age: 53 years old Clinical indication: Screening examination TECHNIQUE: Imaging protocol: Bilateral Screening tomosynthesis and 2D mammography including computer-aided detection (CAD) when performed. COMPARISON: 1. MG MM DIG SCREENING MAMM BI W/CAD 12/15/2021 10:15 AM 2. MG MM DIG SCREENING MAMM BI W/CAD 09/09/2020 8:56 AM FINDINGS: MAMMOGRAPHY: Breast composition: The breasts are heterogeneously dense, which may obscure small masses. Mass: None. Architectural distortion: None. Calcifications: No suspicious calcifications. Asymmetric density: None. Skin thickening: None. Axillary adenopathy: None. IMPRESSION: No mammographic evidence of malignancy. Annual screening is recommended unless otherwise clinically indicated. ASSESSMENT: BI-RADS Category 1: Negative
== END ==
LOC: RAD 10:00
PROVIDERS: PCP Physician Assistant; Visit Provider Obstetrics & Gynecology
DX: Z12.31 Encounter for screening mammogram for malignant neoplasm of breast (principal)
CPT/HCPCS: 77063; 77067

== ENCOUNTER → 2023-06-02 10:05 | Outpatient (POV) | payer OTHER, SELFPAY ==
--- NOTE | 2023-06-02 10:22 | EXP.PAIN.SOA ---
[facility] Pain Management SOAP Note Subjective:: Patient is a pleasant 53-year-old female who presents today for follow-up of left SI and left bursa injection on 05/11/2023. We are currently treating the patient for degenerative disc disease of lumbar spine with lumbar radiculopathy symptoms, lumbar spondylosis, lumbar facet arthropathy low back pain, left hip pain, left leg pain. Today she rates her pain an 8 out of 10. Patient states she had no improvement following this injection. Patient states that she did notice her pain was better initially getting off the table from the injections however it only lasted approximately an hour or so before she was back to her baseline. Patient states this is a constant achy, throbbing sensation that does radiate down into her left leg with numbness and tingling. Patient does feel like she continues to have multiple falls due to not picking up her left foot the way she should which causes her to stumble. Patient has tried physical therapy recently with no additional improvement. Patient continues to do an at home exercise program along with stretches however has not noticed significant relief. Patient states she was recently put on meloxicam 15 mg daily and it has helped some along with being increased on her pain medication to [place] 7.5 mg twice a day from her primary care provider. Patient does state that this helps some of her pain. She states she continues to use a TENS unit at home for additional relief. She states this does help however is only while using the device. Her Raulito has been reviewed and is appropriate. Review of Systems: General: No recent weight changes, no fever, no sleep disturbances Respiratory: No cough, no shortness of air, no recurring pulmonary infections Cardiovascular/peripheral vascular: No chest pain, no palpitations, no edema, no shortness of breath Gastrointestinal: No new onset incontinence, normal bowel movements reported Genitourinary: No new onset incontinence Musculoskeletal: Low back pain, left hip pain, left leg pain Psychiatric: [Normal mood/affect] Neurological: [Denies weakness in extremities], [denies balance issues] Objective:: Physical Exam: General: Alert and oriented x3, no acute distress, pleasant and cooperative Lungs: Respirations even and unlabored, symmetrical chest expansion Eyes: PERRL Musculoskeletal: Flexion and extension of lumbar [spine] somewhat guarded secondary to pain, [antalgic gait noted] Neurological: Speech clear, no gross sensory deficit FINDINGS: Multiplanar MR imaging of the lumbar spine was performed without contrast. On the sagittal T2-weighted images, disc degeneration is seen at multiple levels. There are degenerative endplate changes at multiple levels. The vertebral alignment is normal. There is no evidence of fracture. No bony mass is identified. The conus has an unremarkable appearance. L1-2: There is no significant canal stenosis or neural foraminal narrowing. L2-3: An annular bulge is present as well as facet osteoarthropathy. There is a right foraminal disc protrusion that produces moderate right and mild left neural foraminal narrowing. There is no significant canal stenosis present. L3-4: An annular bulge is present as well as facet osteoarthropathy. There is mild bilateral neural foraminal narrowing without evidence of canal stenosis. L4-5: An annular bulge is present as well as facet osteoarthropathy. There is a small left foraminal disc protrusion and moderate bilateral neural foraminal narrowing. No significant canal stenosis is present. L5-S1: An annular bulge is present with facet osteoarthropathy and osteophytes. There is mild right and moderate left neural foraminal narrowing. No significant canal stenosis is present. IMPRESSION: Multilevel degenerative disc disease and spondylosis as described. Reviewed, Interpreted and Dictated by Nile Rankin III, MD Transcribed by Cinthia Story
[2023-06-02 10:33] VITALS: BP 124/73; PULSE 86; RESP 18; O2SAT 97; BMI 27.4
== END ==
LOC: SC.PAIN 10:06
PROVIDERS: PCP Physician Assistant; Visit Provider Nurse Practitioner Family
DX: M51.16 Intervertebral disc disorders with radiculopathy, lumbar region (principal); M47.26 Other spondylosis with radiculopathy, lumbar region
CPT/HCPCS: 99212; G0463

== ENCOUNTER → 2023-06-30 09:33 | Outpatient (POV) | payer OTHER, SELFPAY ==
--- NOTE | 2023-06-30 09:44 | EXP.PAIN.SOA ---
[facility] Pain Management SOAP Note Subjective:: Patient is a pleasant 53-year-old female who presents today for 1 month follow-up. We are currently treating the patient for degenerative disc disease of lumbar spine with lumbar radiculopathy symptoms, lumbar spondylosis, lumbar facet arthropathy low back pain, left hip pain, left leg pain. Today she rates her pain an out of 10. Patient denies any new trauma or injury or any change to location or type of pain she experiences. Patient continues to have low back pain that stays on her left side going into her hip and left leg. She describes it as a constant achy, throbbing sensation that does radiate down into her left leg with numbness and tingling. Patient does have a history of falls due to her leg symptoms. Patient has tried and failed conservative treatment such as oral medications, heat and ice, topicals, TENS unit, physical therapy, injection therapy. At her last visit we did send her for a psychological evaluation for possible spinal cord stimulator trial in the future. She does state that this has not yet been completed however she was sent a packet of information to be filled out regarding this. She is currently managed with meloxicam 15 mg daily and [place] 7.5 mg twice a day from her primary care provider. She denies any side effects from these medications. Her Raulito has been reviewed and is appropriate. Review of Systems: General: No recent weight changes, no fever, no sleep disturbances Respiratory: No cough, no shortness of air, no recurring pulmonary infections Cardiovascular/peripheral vascular: No chest pain, no palpitations, no edema, no shortness of breath Gastrointestinal: No new onset incontinence, normal bowel movements reported Genitourinary: No new onset incontinence Musculoskeletal: Low back pain, left leg, left hip pain Psychiatric: [Normal mood/affect] Neurological: [Denies weakness in extremities], [denies balance issues] Objective:: Physical Exam: General: Alert and oriented x3, no acute distress, pleasant and cooperative Lungs: Respirations even and unlabored, symmetrical chest expansion Eyes: PERRL Musculoskeletal: Flexion and extension of lumbar [spine] somewhat guarded secondary to pain, [antalgic gait noted] Neurological: Speech clear, no gross sensory deficit Assessment:: Degenerative disc disease of lumbar spine with lumbar radiculopathy, lumbar spondylosis, lumbar facet arthropathy, low back pain, left hip pain, left leg pain Plan:: We will follow-up regarding her psychological evaluation and make sure that she does have an upcoming appointment for this. I have reviewed over the risk and benefits again regarding the spinal cord stimulator trial. Patient will return to clinic in 1 month following her psychological evaluation. Patient has been instructed to contact the clinic with any concerns before the next appointment. Dr. Gallegos has reviewed this note and agrees with this plan of care. This note was dictated using voice recognition software and make contain errors or omissions. [facility] Disclaimer: The information contained in this section may have been updated after the patient was seen, as this information can be updated by other users. 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
[2023-06-30 09:57] VITALS: BP 144/90; PULSE 86; RESP 18; O2SAT 98; BMI 27.8
== END ==
LOC: SC.PAIN 09:34
PROVIDERS: PCP Physician Assistant; Visit Provider Nurse Practitioner Family
DX: M51.16 Intervertebral disc disorders with radiculopathy, lumbar region (principal); M47.26 Other spondylosis with radiculopathy, lumbar region; M25.552 Pain in left hip; M79.605 Pain in left leg
CPT/HCPCS: 99212; G0463

== ENCOUNTER 2023-08-02 06:01 | Emergency (ER) | payer OTHER, SELFPAY ==
[2023-08-02 06:02] VITALS: BP 129/81; PULSE 126; RESP 20; TEMP 36.6; O2SAT 100; BMI 28.7
--- NOTE | 2023-08-02 06:13 | PC.NURSE ---
in room talking with patient.
--- NOTE | 2023-08-02 06:17 | CT_ITS ---
FINAL REPORT CLINICAL HISTORY: RLQ/Pelvic/R flank pain FINDINGS: CT OF THE ABDOMEN AND PELVIS WITH CONTRAST Axial CT images of the abdomen and pelvis were obtained after the administration of iv contrast. Coronal and sagittal reformatted images were also obtained and reviewed.This study was performed with techniques to keep radiation doses as low as reasonably achievable (ALARA). Individualized dose reduction techniques using automated exposure control or adjustment of mA and/or kV according to the patient's size were employed. Abdomen: There is mild scarring or atelectasis present in the lung bases. The heart is normal in size. The liver has an unremarkable appearance, without evidence of mass or biliary ductal dilatation. The spleen is unremarkable. No adrenal mass is present. The pancreas has an unremarkable appearance. The kidneys are normal, without evidence of mass or hydronephrosis. The aorta is normal in caliber. There is no free fluid or adenopathy. No mass or abnormal fluid collection is seen. Pelvis: The appendix is normal in appearance. There is a moderate amount of stool present in the colon. The cecum is moderately distended with mild adjacent stranding, colitis is not excluded. There is a small umbilical hernia containing fat. The urinary bladder is unremarkable. No inflammatory process is seen. There is no evidence of mass or adenopathy. There is no evidence of bowel obstruction. The uterus has been surgically resected. IMPRESSION: Moderate distention of the cecum with mild adjacent stranding, colitis not excluded. A moderate stool burden is present as well. Otherwise unremarkable CT of the abdomen and pelvis. Reviewed, Interpreted and Dictated by Nile Rankin III, MD Transcribed by Cinthia Veronica Authenticated and . [facility]
--- NOTE | 2023-08-02 06:17 | HMH.EDGENADL ---
Discharge Plan Disposition Patient Disposition: Home, Self-Care Condition: Good Prescriptions Prescriptions: New naproxen 500 mg tablet 500 mg PO BID Qty: 20 0RF polyethylene glycol 3350 [Miralax] 17 gram/dose powder 17 g PO DAILY Qty: 510 0RF sennosides [senna] 8.6 mg tablet 8.6 mg PO DAILY Qty: 30 0RF No Action valacyclovir [Valtrex] 1 gram tablet 1,000 mg PO BID Qty: 60 2RF dextroamphetamine-amphetamine 30 mg tablet 30 mg PO TID Qty: 90 0RF Rx Instructions: administer doses at least 4-6 hours apart meloxicam 15 mg tablet 15 mg PO DAILY Qty: 30 2RF hydrocodone-acetaminophen 7.5-325 mg tablet 1 tab PO BID Qty: 60 0RF atorvastatin 20 mg tablet 20 mg PO DAILY Rx Instructions: TAKE ONE TABLET BY MOUTH EVERY DAY AT BEDTIME FOR CHOLESTEROL ibuprofen 800 mg tablet 800 mg PO BID Rx Instructions: TAKE 1 TABLET BY MOUTH TWICE DAILY --TAKE WITH FOOD-- ergocalciferol (vitamin D2) 1,250 mcg (50,000 unit) capsule 1,250 mcg PO WEEKLY Rx Instructions: TAKE ONE CAPSULE BY MOUTH ONCE a WEEK FOR supplement losartan-hydrochlorothiazide 50-12.5 mg tablet 1 tab PO DAILY Rx Instructions: TAKE ONE TABLET BY MOUTH DAILY FOR hypertension duloxetine 60 mg capsule,delayed release(DR/EC) 60 mg PO DAILY Rx Instructions: TAKE ONE CAPSULE BY MOUTH EVERY DAY FOR ANXIETY cholecalciferol (vitamin D3) 25 mcg (1,000 unit) tablet 25 mcg PO DAILY Rx Instructions: TAKE ONE TABLET BY MOUTH EVERY DAY --TAKE WITH FOOD-- quetiapine 400 mg tablet 400 mg PO HS Rx Instructions: TAKE ONE TABLET BY MOUTH EVERY NIGHT AT BEDTIME FOR MOOD Referrals Follow up/Referrals: Francisca Kam PA [Primary Care Provider] - See instructions Activity Restrictions/Add. Instructions Additional Instructions/Restrictions: You were evaluated in the emergency department today. Please oyster picker your prescriptions at the pharmacy. I recommend using 4 scoops of MiraLAX on day 1 for cleanout. After this, use 1-2 scoops per day as needed to titrate to soft stools. I also sent in senna which is another laxative. Naproxen as an anti-inflammatory for you to take as needed for pain given concerns for colitis on CT scan. This basically means inflammation and irritation of your colon. You may also take Tylenol in addition to this. Return to the emergency department for new or worsening symptoms, such as fever, intractable nausea and vomiting, or significant worsening of pain. Follow-up with your primary care provider for reassessment over the next 3 days. Clinical Impressions Clinical Impression: Abdominal pain, acute, right lower quadrant, Constipation, Colitis Instructions Patient Instructions: DI for Constipation, DI for Acute Abdominal Pain, DI for Colitis Discharge ED Provider: Lavinia Ferris [facility] Adult HPI <Marcos Briseno MD - Last Filed: 08/02/23 06:53> General Chief complaint: Abdominal Pain Stated complaint: lower back pain, right leg pain Time Seen by Provider: 08/02/23 06:05 Mode of Arrival: Ambulatory Source of Information: Patient Limitations: No Limitations Description of Symptoms (Recalled from ER Triage Doc. by RN): Patient states that she had a virus for 3 days a few days ago but has been better for 2 days until 0300 today when she started having pain in her right lower abd to her back. History of Present Illness HPI narrative: 53-year-old female with history of tubal ligation bilaterally, hysterectomy, no other abdominal surgeries presents with relatively severe right lower quadrant/pelvic/right low back pain. She reports nothing like this has happened before. She reports history of prior ovarian cyst. She reports no history of appendicitis or diverticulitis. She reports that she had a virus 3 days ago and was laid up in bed but only had 1 episode of vomiting. She denies any urinary symptoms or changes in bowel function. Related Data Home Medications Medication Instructions Recorded Confirmed atorvastatin 20 mg tablet 20 mg PO DAILY Cholesterol 03/24/23 08/02/23 cholecalciferol (vitamin D3) 25 25 mcg PO DAILY SUPPLIMENT 03/24/23 08/02/23 mcg (1,000 unit) tablet duloxetine 60 mg capsule,delayed 60 mg PO DAILY MOOD 03/24/23 08/02/23 release ergocalciferol (vitamin D2) 1,250 1,250 mcg PO WEEKLY SUPPLIMENT 03/24/23 08/02/23 mcg (50,000 unit) capsule ibuprofen 800 mg tablet 800 mg PO BID Pain 03/24/23 08/02/23 losartan 50 mg-hydrochlorothiazide 1 tab PO DAILY BLOOD PRESSURE 03/24/23 08/02/23 12.5 mg tablet quetiapine 400 mg tablet 400 mg PO HS 08/02/23 08/02/23 Previous Rx's Medication Instructions Recorded valacyclovir 1 gram tablet 1,000 mg PO BID #60 tabs 06/03/23 (Valtrex) dextroamphetamine-amphetamine 30 30 mg PO TID Mood #90 tabs 06/18/23 mg tablet meloxicam 15 mg tablet 15 mg PO DAILY #30 tabs 07/26/23 hydrocodone 7.5 mg-acetaminophen 1 tab PO BID #60 tabs 07/29/23 325 mg tablet naproxen 500 mg tablet 500 mg PO BID #20 tabs 08/02/23 polyethylene glycol 3350 17 17 g PO DAILY #510 grams 08/02/23 gram/dose oral powder (Miralax) sennosides 8.6 mg tablet (senna) 8.6 mg PO DAILY #30 tabs 08/02/23 Allergies Allergy/AdvReac Type Severity Reaction Status Date / Time No Known Allergies Allergy Verified 06/03/23 15:26 [facility] <Marcos Briseno MD - Last Filed: 08/02/23 06:53> [facility] Disclaimer: The information contained in this section may have been updated after the patient was seen, as this information can be updated by other users. 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 current occupational exposures/hazards: No caffeine: Yes <Marcos Briseno MD - Last Filed: 08/02/23 06:53> ROS Obtained: Yes All systems reviewed & no additional complaints except as documented Physical Exam <Marcos Briseno MD - Last Filed: 08/02/23 06:53> General General appearance: alert and anxious Head Head exam: atraumatic and normocephalic Eye Eye exam: Present normal appearance, PERRL and EOMI ENT ENT exam: Present normal oropharynx and normal external ear exam Neck Neck exam: Present normal inspection and full ROM Chest Chest inspection: Present normal inspection and symmetric chest wall rise; Absent tenderness Respiratory Respiratory exam: Present normal lung sounds bilaterally; Absent respiratory distress Cardiovascular Cardiovascular exam: Present regular rate and normal rhythm Abdominal Exam Abdominal exam: Present soft and tenderness (Right lower quadrant, suprapubic); Absent distention or guarding Extremities Exam Extremities exam: Present normal inspection; Absent edema or joint swelling Back Exam Back exam: Present normal inspection and tenderness (Right low back, right flank) Neurological Exam Neurological exam: Present alert and oriented X3; Absent motor sensory deficit Psychiatric Psychiatric exam: Present normal affect and normal mood Skin Skin exam: Present warm, dry and normal color Lymphatic Lymphatic Findings: no adenopathy Medical Decision Making <Marcos Briseno MD - Last Filed: 08/02/23 06:53> Medical Records Medical records reviewed: Yes I reviewed the patient's medical records. Raulito Inquiry Pt receiving controlled substance: No Rauilto was queried for this patient: No Vital Signs: 08/02/23 06:02 08/02/23 07:00 08/02/23 08:46 Temperature 97.8 F 97.8 F Temperature Source Oral Oral Pulse Rate 114 H 108 H Pulse Rate [Radial] 126 H Respiratory Rate 20 20 20 Blood Pressure 106/71 L 117/75 Blood Pressure [Right Arm] 129/81 Blood Pressure Mean 80 Blood Pressure Mean [Right Arm] 97 Blood Pressure Source Automatic Cuff Blood Pressure Source [Right Arm] Automatic Cuff Blood Pressure Position Sitting Blood Pressure Position [Right Arm] Sitting 02 Sat by Pulse Oximetry 100 97 Oxygen Delivery Method Room Air Room Air Lab Data Lab results reviewed: Yes I reviewed the patient's lab results. Lab Results 08/02/23 06:20: WBC 12.6 H, RBC 4.03 L, Hgb 13.0, Hct 39.2, MCV 97.2, MCH 32.3 H, MCHC 33.3, RDW 12.5, Plt Count 287, MPV 7.4, Neut % (Auto) 84.4 H, Lymph % (Auto) 7.2 L, [place] % (Auto) 4.7, Eos % (Auto) 3.3, Baso % (Auto) 0.4, Neut # (Auto) 10.6 H, Lymph # (Auto) 0.9, [place] # (Auto) 0.6, Eos # (Auto) 0.4, Baso # (Auto) 0.1, Sodium 135 L, Potassium 3.2 L, Chloride 100, Carbon Dioxide 30, Anion Gap 8.2, BUN 23 H, Creatinine 1.00, Estimated Creat Clear 77, Estimated GFR 58 L, Est GFR ( Amer) 71, Glucose 114 H, Calcium 9.9, Total Bilirubin 0.5, AST 28, ALT 24, Alkaline Phosphatase 96, Total Protein 7.1, Albumin 4.3, Globulin 2.8, Albumin/Globulin Ratio 1.5 08/02/23 06:36: Urine Color Yellow, Urine Appearance Clear, Urine pH 5.5, Ur Specific [place] >= 1.030, Urine Protein Negative, Urine Glucose (UA) Negative, Urine Ketones Negative, Urine Blood Negative, Urine Nitrate Negative, Urine Bilirubin Negative, Urine Urobilinogen 0.2, Ur Leukocyte Esterase 1+ A, Urine RBC None, Urine WBC 10-20, Ur Squamous Epith Cells 20-50, Urine Bacteria Trace 08/02/23 06:20 08/02/23 06:20 Orders (Tests/Meds): ED MEDICATIONS Discontinued Medications Generic Name Dose Route Start Last Admin Trade Name Santino PRN Reason Stop Dose Admin Acetaminophen 1,000 mg 08/02/23 06:17 08/02/23 06:28 Acetaminophen 500mg Tab PO 08/02/23 06:18 1,000 mg ONCE ONE Administration Iopamidol 75 ml 08/02/23 07:01 08/02/23 07:02 Iopamidol-370 (76%);100ml Bottle IV 08/02/23 07:02 75 ml ONCE ONE Administration Ketorolac Tromethamine 30 mg 08/02/23 06:17 08/02/23 06:28 Ketorolac 30mg/Ml Vial IV 08/02/23 06:18 30 mg ONCE ONE Administration Morphine Sulfate 4 mg 08/02/23 06:17 08/02/23 06:28 Morphine 4mg/Ml Syringe IV 08/02/23 06:18 4 mg ONCE ONE Administration Ondansetron HCl 4 mg 08/02/23 06:17 08/02/23 06:28 Ondansetron 4mg/2ml Vial IV 08/02/23 06:18 4 mg ONCE ONE Administration Potassium Chloride 40 meq 08/02/23 06:45 08/02/23 06:59 Potassium Chloride 20meq Tab PO 08/02/23 06:46 40 meq ONCE ONE Administration Sodium Chloride 10 ml 08/02/23 07:01 08/02/23 07:02 Sodium Chloride 0.9% 10ml Syr (Rad Only) IV 08/02/23 07:02 10 ml ONCE ONE Administration ORDERS Category Date Time Status CT abdomen pelvis w con Stat Cat Scan 08/02/23 06:17 Completed CBC w/Auto Diff [Complete Blood Count Auto Diff] Stat Lab 08/02/23 06:20 Completed CMP [Comprehensive Metabolic Panel] Stat Lab 08/02/23 06:20 Completed UA [Urinalysis and Microscopic] Stat Lab 08/02/23 06:36 Completed Urine Culture Stat Micro 08/02/23 06:36 Received Medical Decision Narrative: 53-year-old female presents with relatively sudden and severe right lower quadrant and right flank pain starting a few hours prior to arrival.. History was obtained via conversation with patient, chart review. On arrival, patient is afebrile, mildly tachycardic, normotensive satting appropriately on room air alert and oriented, moving all extremities spontaneously. Full physical exam performed and significant for right lower quadrant/suprapubic/right low back flank pain. Differential includes but is not limited to appendicitis, cholecystitis, pyelonephritis, obstructive nephrolithiasis, ovarian torsion, ovarian cyst. Patient was given p.o. Tylenol, IV Toradol, IV morphine, IV Zofran for symptomatic management and correction of underlying abnormalities. Workup initiated including CBC CMP UA CT abdomen and pelvis with IV contrast.. On re-evaluation, patient [remains afebrile, HD stable.] Laboratory workup independently interpreted by me and significant for mild hypokalemia, oral repletion ordered, mild leukocytosis. Patient handed off to oncoming physician pending urine studies and CT imaging. <Lavinia Ferris, DO - Last Filed: 08/02/23 08:54> Vital Signs: 08/02/23 06:02 08/02/23 07:00 08/02/23 08:46 Temperature 97.8 F 97.8 F Temperature Source Oral Oral Pulse Rate 114 H 108 H Pulse Rate [Radial] 126 H Respiratory Rate 20 20 20 Blood Pressure 106/71 L 117/75 Blood Pressure [Right Arm] 129/81 Blood Pressure Mean 80 Blood Pressure Mean [Right Arm] 97 Blood Pressure Source Automatic Cuff Blood Pressure Source [Right Arm] Automatic Cuff Blood Pressure Position Sitting Blood Pressure Position [Right Arm] Sitting 02 Sat by Pulse Oximetry 100 97 Oxygen Delivery Method Room Air Room Air Lab Data Lab Results 08/02/23 06:20: WBC 12.6 H, RBC 4.03 L, Hgb 13.0, Hct 39.2, MCV 97.2, MCH 32.3 H, MCHC 33.3, RDW 12.5, Plt Count 287, MPV 7.4, Neut % (Auto) 84.4 H, Lymph % (Auto) 7.2 L, [place] % (Auto) 4.7, Eos % (Auto) 3.3, Baso % (Auto) 0.4, Neut # (Auto) 10.6 H, Lymph # (Auto) 0.9, [place] # (Auto) 0.6, Eos # (Auto) 0.4, Baso # (Auto) 0.1, Sodium 135 L, Potassium 3.2 L, Chloride 100, Carbon Dioxide 30, Anion Gap 8.2, BUN 23 H, Creatinine 1.00, Estimated Creat Clear 77, Estimated GFR 58 L, Est GFR ( Amer) 71, Glucose 114 H, Calcium 9.9, Total Bilirubin 0.5, AST 28, ALT 24, Alkaline Phosphatase 96, Total Protein 7.1, Albumin 4.3, Globulin 2.8, Albumin/Globulin Ratio 1.5 08/02/23 06:36: Urine Color Yellow, Urine Appearance Clear, Urine pH 5.5, Ur Specific [place] >= 1.030, Urine Protein Negative, Urine Glucose (UA) Negative, Urine Ketones Negative, Urine Blood Negative, Urine Nitrate Negative, Urine Bilirubin Negative, Urine Urobilinogen 0.2, Ur Leukocyte Esterase 1+ A, Urine RBC None, Urine WBC 10-20, Ur Squamous Epith Cells 20-50, Urine Bacteria Trace Orders (Tests/Meds): ED MEDICATIONS Discontinued Medications Generic Name Dose Route Start Last Admin Trade Name Santino PRN Reason Stop Dose Admin Acetaminophen 1,000 mg 08/02/23 06:17 08/02/23 06:28 Acetaminophen 500mg Tab PO 08/02/23 06:18 1,000 mg ONCE ONE Administration Iopamidol 75 ml 08/02/23 07:01 08/02/23 07:02 Iopamidol-370 (76%);100ml Bottle IV 08/02/23 07:02 75 ml ONCE ONE Administration Ketorolac Tromethamine 30 mg 08/02/23 06:17 08/02/23 06:28 Ketorolac 30mg/Ml Vial IV 08/02/23 06:18 30 mg ONCE ONE Administration Morphine Sulfate 4 mg 08/02/23 06:17 08/02/23 06:28 Morphine 4mg/Ml Syringe IV 08/02/23 06:18 4 mg ONCE ONE Administration Ondansetron HCl 4 mg 08/02/23 06:17 08/02/23 06:28 Ondansetron 4mg/2ml Vial IV 08/02/23 06:18 4 mg ONCE ONE Administration Potassium Chloride 40 meq 08/02/23 06:45 08/02/23 06:59 Potassium Chloride 20meq Tab PO 08/02/23 06:46 40 meq ONCE ONE Administration Sodium Chloride 10 ml 08/02/23 07:01 08/02/23 07:02 Sodium Chloride 0.9% 10ml Syr (Rad Only) IV 08/02/23 07:02 10 ml ONCE ONE Administration ORDERS Category Date Time Status CT abdomen pelvis w con Stat Cat Scan 08/02/23 06:17 Completed CBC w/Auto Diff [Complete Blood Count Auto Diff] Stat Lab 08/02/23 06:20 Completed CMP [Comprehensive Metabolic Panel] Stat Lab 08/02/23 06:20 Completed UA [Urinalysis and Microscopic] Stat Lab 08/02/23 06:36 Completed Urine Culture Stat Micro 08/02/23 06:36 Received Medical Decision Narrative: 53-year-old female presents with relatively sudden and severe right lower quadrant and right flank pain starting a few hours prior to arrival.. History was obtained via conversation with patient, chart review. On arrival, patient is afebrile, mildly tachycardic, normotensive satting appropriately on room air alert and oriented, moving all extremities spontaneously. Full physical exam performed and significant for right lower quadrant/suprapubic/right low back flank pain. Differential includes but is not limited to appendicitis, cholecystitis, pyelonephritis, obstructive nephrolithiasis, ovarian torsion, ovarian cyst. Patient was given p.o. Tylenol, IV Toradol, IV morphine, IV Zofran for symptomatic management and correction of underlying abnormalities. Workup initiated including CBC CMP UA CT abdomen and pelvis with IV contrast.. On re-evaluation, patient [remains afebrile, HD stable.] Laboratory workup independently interpreted by me and significant for mild hypokalemia, oral repletion ordered, mild leukocytosis. Patient handed off to oncoming physician pending urine studies and CT imaging. DO [place]: On my assessment of the patient, she is resting comfortably with improved symptoms. And apparently interpreted CT scan prior to radiology read and noted large amount of stool within the colon and dilation of the cecum. She does not have findings concerning for appendicitis but does have mild colitis. No obvious surgical intervention indicated at this time. Patient was able to tolerate oral intake without difficulty while in the emergency department, and abdominal exam is benign on reassessment. She does note that she has been having a lot of trouble having bowel movements, so I feel constipation is most likely. I considered administering antibiotics for colitis, however I do not feel that this is indicated based on current recommendations as it would likely worsen her symptoms. Patient is agreeable to discharge home with prescription for MiraLAX and senna as well as naproxen. She was given very strict return precautions should her symptoms worsen or should she develop significant fevers, vomiting, or other issues. She was also given instructions for close patient follow-up. She was discharged after all questions were answered. Procedures <Marocs Briseno MD - Last Filed: 08/02/23 06:53> Risk/Benefits of Procedure(s) Were Explained: Yes Critical Care <Marcos Briseno MD - Last Filed: 08/02/23 06:53> Critical Care Time Critical Care Time: No
[2023-08-02] MEDS: MORPHINE 4MG/ML SYRINGE 4 MG IV (06:28)
[2023-08-02] MEDS: ACETAMINOPHEN 500MG TAB 1000 MG PO (06:28)
[2023-08-02] MEDS: ONDANSETRON 4MG/2ML VIAL 4 MG IV (06:28)
[2023-08-02] MEDS: KETOROLAC 30MG/ML VIAL 30 MG IV (06:28)
[2023-08-02 06:36] LABS: Basophils # 0.1 K/mm3 (0-0.2); Basophils % 0.4 % (0.1-2.0); Chloride 100 mmol/L (98-107); Eosinophils # 0.4 K/mm3 (0.0-0.4); Eosinophils % 3.3 % (0.1-12.0); Hematocrit 39.2 % (37.0-47.0); Lymphocytes # 0.9 K/mm3 (0.7-4.5); Lymphocytes % 7.2 % (10-50); Mean Corpuscular HGB Conc 33.3 g/dL (31.8-35.4); Mean Corpuscular Hemoglobin 32.3 pg (27.0-31.2); Mean Corpuscular Volume 97.2 fl (81-99); Mean Platelet Volume 7.4 fl (7.4-10.4); Monocytes # 0.6 K/mm3 (0.1-1.0); Monocytes % 4.7 % (1.7-9.3); Neutrophils # 10.6 K/mm3 (1.8-7.8); Neutrophils % 84.4 % (37.0-80.0); Platelet Count 287 K/mm3 (142-424); Red Blood Count 4.03 M/mm3 (4.20-5.40); Red Cell Distribution Width 12.5 % (11.5-17.5); Sodium 135 mmol/L (136-145); White Blood Count 12.6 K/mm3 (4.8-10.8)
[2023-08-02 06:37] LABS: Potassium 3.2 mmoL/L (3.5-5.1)
[2023-08-02 06:39] LABS: Alanine Aminotransferase 24 U/L (12-78); Albumin Level 4.3 g/dl (3.5-5.0); Albumin/Globulin Ratio 1.5 (1.1-1.8); Alkaline Phosphatase 96 U/L (38-126); Anion Gap 8.2 mEq/L (5-15); Aspartate Amino Transferase 28 U/L (14-36); Bilirubin,Total 0.5 mg/dl (0.2-1.3); Blood Urea Nitrogen 23 mg/dl (7-17); Carbon Dioxide 30 mmol/L (22.0-30.0); Creatinine Clearance Estimated 77 mL/min (50-200); Estimated Glomerular Filt Rate 58 ml/min (>60); GFR (African American) 71 ML/MIN (>60); Globulin 2.8 g/dL (1.3-3.2); Total Protein,Serum 7.1 g/dl (6.3-8.2)
[2023-08-02 06:40] LABS: Calcium 9.9 mg/dl (8.4-10.2); Glucose 114 mg/dl (74-100)
[2023-08-02 06:41] LABS: Microscopic, Urine URINE MICROSCOPIC (MICROSCOPIC)
[2023-08-02 06:42] LABS: Appearance,Urine CLEAR (Clear); Bilirubin,Urine Negative (Negative); Blood, Urine Negative (Negative); Color,Urine YELLOW (Yellow); Glucose,Urine (UA) Negative (Negative); Ketones,Urine Negative (Negative); Leukocyte Esterase,Urine 1+ (Negative); Nitrate,Urine Negative (Negative); PH,Urine 5.5 (5.0-8.5); Protein,Urine Negative (Negative); Specific Gravity, Urine >= 1.030 (1.005-1.030); Urobilinogen,Urine 0.2 EU/dl (0.2)
[2023-08-02] MEDS: POTASSIUM CHLORIDE 20MEQ TAB 40 MEQ PO (06:59)
[2023-08-02 07:00] VITALS: BP 106/71; PULSE 114; RESP 20; O2SAT 97
[2023-08-02] MEDS: SODIUM CHLORIDE 0.9% 10ML SYR (RAD ONLY) 10 ML IV (07:02)
[2023-08-02] MEDS: IOPAMIDOL-370 (76%);100ML BOTTLE 75 ML IV (07:02)
[2023-08-02 08:18] LABS: Bacteria,Urine Trace /lpf; Squamous Epithelial Cell,Urine 20-50 #/hpf (0-5)
[2023-08-02 08:46] VITALS: BP 117/75; PULSE 108; RESP 20; TEMP 36.6; O2SAT 97
--- NOTE | 2023-08-05 06:24 | PC.NURSE ---
urine culture, no changes per dr garcia.
--- NOTE | 2023-08-05 10:51 | PC.NURSE ---
called pt to fu on urine culture, pt states that she is feeling much better with no symptoms at this time. Thankful for the care she received at [facility]. NTD per at this time
== END 2023-08-02 08:48 | disposition home or self-care (01) ==
PROVIDERS: Emergency Medicine; Emergency Provider Emergency Medicine; PCP Physician Assistant
DX: R10.31 Right lower quadrant pain (principal); K52.9 Noninfective gastroenteritis and colitis, unspecified; E87.6 Hypokalemia; B95.1 Streptococcus, group B, as the cause of diseases classified elsewhere; K59.00 Constipation, unspecified; R10.2 Pelvic and perineal pain; M54.59 Other low back pain; E78.5 Hyperlipidemia, unspecified; I10 Essential (primary) hypertension
CPT/HCPCS: 74177; 80053; 81001; 85025; 87086; 96374; 96375; 99285; J2405; Q9967

== ENCOUNTER → 2023-08-20 14:38 | Outpatient (POV) | payer OTHER, SELFPAY ==
[2023-08-20 15:27] VITALS: BP 131/87; PULSE 85; RESP 20; O2SAT 95; BMI 27.8
--- NOTE | 2023-08-20 15:40 | A.OFFVIS_ITS ---
[facility] Pain Management SOAP Note Subjective:: Patient is a pleasant 53-year-old female who presents today for follow-up. We are currently treating the patient for degenerative disc disease of lumbar spine with lumbar radiculopathy symptoms, lumbar facet arthropathy, lumbar spondylosis, left hip pain, left leg pain. Today she rates her pain a 5 out of 10. Patient denies any new injury or trauma. Patient was at her last visit sent for psychological evaluation for possible spinal cord stimulator trial. She states she has not heard from this office. Patient is currently managed with meloxicam 15 mg daily and [place] 7.5 mg twice a day from her family doctor. Her Raulito has been reviewed and is appropriate. Review of Systems: General: No recent weight changes, no fever, no sleep disturbances Respiratory: No cough, no shortness of air, no recurring pulmonary infections Cardiovascular/peripheral vascular: No chest pain, no palpitations, no edema, no shortness of breath Gastrointestinal: No new onset incontinence, normal bowel movements reported Genitourinary: No new onset incontinence Musculoskeletal: Low back pain, leg pain Psychiatric: [Normal mood/affect] Neurological: [Denies weakness in extremities], [denies balance issues] Objective:: Physical Exam: General: Alert and oriented x3, no acute distress, pleasant and cooperative Lungs: Respirations even and unlabored, symmetrical chest expansion Eyes: PERRL Musculoskeletal: Flexion and extension of lumbar [spine] somewhat guarded secondary to pain, [antalgic gait noted] Neurological: Speech clear, no gross sensory deficit Assessment:: Degenerative disc disease of lumbar spine with lumbar radiculopathy symptoms, lumbar facet arthropathy, lumbar spondylosis, left hip pain, left leg pain Plan:: We will reach out to follow-up on her psychological evaluation appointment. Patient will follow-up with our office in 1 month for reevaluation of symptoms and plan of care. Patient has been instructed to contact the clinic with any concerns before the next appointment. Dr. Gallegos has reviewed this note and agrees with this plan of care. This note was dictated using voice recognition software and make contain errors or omissions. [facility] Disclaimer: The information contained in this section may have been updated after the patient was seen, as this information can be updated by other users. 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
== END ==
LOC: SC.PAIN 14:39
PROVIDERS: PCP Physician Assistant; Visit Provider Nurse Practitioner Family
DX: M51.16 Intervertebral disc disorders with radiculopathy, lumbar region (principal); M47.26 Other spondylosis with radiculopathy, lumbar region; M25.552 Pain in left hip; M79.605 Pain in left leg
CPT/HCPCS: 99212; G0463

== ENCOUNTER 2023-08-27 09:30 | Day surgery (SDC) | payer OTHER, SELFPAY ==
[2023-08-27 09:48] VITALS: BP 154/88; PULSE 82; RESP 18; TEMP 36.8; O2SAT 99; BMI 27.3
[2023-08-27] MEDS: LACTATED RINGERS 1000ML 1,000 ML 100 ML IV (09:53)
--- NOTE | 2023-08-27 10:09 | EXP.ANES.CKL ---
[facility] Disclaimer: The information contained in this section may have been updated after the patient was seen, as this information can be updated by other users. 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 current occupational exposures/hazards: No caffeine: Yes [facility] Anesthesia Checklist Patient Identification Patient Identification: Arm Band and Verbal (Name & ) Structural Data Admitted From: Home Planned Operative Procedure/s: Colonoscopy Consent for Planned Operative Procedure(s) Verified: Yes NPO Status Verified Time NPO: 00:00 Additional verifications Anesthesia Reactions: No Hx Blood Transfusions: No Blood Transfusion Reaction: No Airway Assessment Mallampati Score:: Class II C-Spine Mobility Assessed: Yes TMJ Mobility Assessed: Yes Dentition: Good Dentition Neurological Assessment Level of Consciousness: Awake Hx Seizures: No Numbness or tingling in extremities: No Anesthesia Plan Anesthesia Risk discussed: Yes Anesthesia Plan: Verified ASA Class: II Anesthesia Type: MAC
--- NOTE | 2023-08-27 10:10 | HMH.SCOPE ---
Procedure: Date: 08/27/23 Patient Date of :: 1970 Procedure Performed:: Colonoscopy with polypectomy using snare Indications:: Patient is a 53-year-old female scheduled for screening colonoscopy. Primary care provider is Francisca Kam. Since being scheduled for screening colonoscopy she was seen in the emergency department on 08/02/2023 with significant right lower quadrant, pelvic, and right lower back pain. Evaluation in the emergency department included CT scan of the abdomen and pelvis which revealed moderate distention of the cecum with mild adjacent stranding, colitis not excluded. Moderate stool burden present as well. Performing Provider:: Nile Jones MD Referring Provider:: Francisca Kam Sedation:: MAC sedation Procedure:: Patient history was obtained and appropriate physical examination was performed. Patient's medications and allergies were reviewed. Informed consent was obtained after explaining the benefits, alternatives, and risks of the procedure including, but not limited to, bleeding, perforation, missed lesions, and adverse reaction to anesthesia medications. Patient was transported to endoscopy procedure room. Patient was connected to monitoring devices. Throughout the procedure the patient's blood pressure, pulse, and oxygen saturations were monitored continuously. Patient identification and planned procedure were verified by the staff. Patient was positioned in lateral decubitus position. Digital anorectal exam was performed. Variable stiffness Olympus colonoscope was inserted and advanced under direct visualization to the cecum. Adequacy of the colonic preparation was noted. The colonoscope was advanced a short distance into the terminal ileum. The colonoscope was then slowly withdrawn while carefully examining the color, texture, anatomy, and integrity of the mucosoa circumferentially. Within the rectum retroflexion was performed. Colonoscope was then withdrawn. . Upon advancement of the colonoscope there was noted to be a probable adenomatous polyp in the sigmoid or descending colon. Colonoscope was ultimately advanced to the cecum. This was rather difficult due to significant redundancy and floppiness of the sigmoid colon with spasticity and lack of relaxation. Colonic preparation was fair. She had some degree of diverticulosis. Due to the anatomy with atonic redundant sigmoid colon as the colonoscope was withdrawn to the transverse colon it quickly withdrew to the descending colon. With some difficulty it was ultimately readvanced to the right colon and slowly withdrawn with careful surveillance. There is some degree of diverticulosis. There was noted to be a sessile polyp in the sigmoid colon removed with cold snare. Colonoscope was withdrawn to the rectum. It was unclear if this was the polyp that was initially noted and therefore the colonoscope was readvanced and slowly withdrawn. Due to the spasticity and lack of relaxation visualization was somewhat suboptimal. No additional polyp was noted. Colonoscope was withdrawn . Findings:: Fair prep Appreciable spasticity, tortuosity, and lack of relaxation potentially secondary to atonic colon due to constipation and also secondary to previous hysterectomy Some degree of diverticulosis Sessile sigmoid polyp removed with cold snare Recommendations:: Repeat colonoscopy in 1 to 2 years due to difficulty and thorough evaluation of the colon. This may be served with gastroenterology using adult colonoscope. Complications:: None immediately apparent Estimated blood obtained (mL): 1 Colonoscopy Component Colonoscopy Component Was a colonoscopy performed during today's procedure?: Yes Recommended follow up colonoscopy of at least 10 years?: No If no, follow up colonoscopy recommended in ___ years?: 1-2 Reason for not recommending >/= 10 yr follow-up interval?: See above
[2023-08-27 10:20] VITALS: O2SAT 99
[2023-08-27 11:24] VITALS: BP 116/71; PULSE 76; RESP 16; TEMP 36.3; O2SAT 96
[2023-08-27 11:34] VITALS: BP 117/81; PULSE 75; RESP 16; O2SAT 97
[2023-08-27 11:44] VITALS: BP 135/98; PULSE 94; RESP 16; O2SAT 96
[2023-08-27 11:45] VITALS: BP 139/90; PULSE 91; RESP 16; TEMP 36.6; O2SAT 98
== END 2023-08-27 11:56 | disposition home or self-care (01) ==
PROVIDERS: PCP Physician Assistant; Visit Provider Surgery
PROC: 0DJD8ZZ Inspection of Lower Intestinal Tract, Via Natural or Artificial Opening Endoscopic (ICD-10-PCS; CPT 45385; principal; 2023-08-27 10:30)
DX: D12.5 Benign neoplasm of sigmoid colon; K52.9 Noninfective gastroenteritis and colitis, unspecified; R10.31 Right lower quadrant pain; K63.89 Other specified diseases of intestine
CPT/HCPCS: 45385; J2704

== ENCOUNTER 2023-09-16 08:28 | Outpatient (POV) | payer OTHER, SELFPAY ==
[2023-09-16 08:40] VITALS: BP 134/68; PULSE 100; RESP 18; O2SAT 97; BMI 27.8
--- NOTE | 2023-09-16 09:04 | EXP.PAIN.SOA ---
[facility] Pain Management SOAP Note Subjective:: Patient is a pleasant 53-year-old female who presents today for psychological evaluation follow-up. We are currently treating the patient for degenerative disc disease of lumbar spine with lumbar radiculopathy symptoms, lumbar facet arthropathy, left hip pain, left leg pain. Today she rates her pain a 5 out of 10. Patient denies any new trauma or injury. She states she continues to have this chronic pain throughout her low back and radiating down her entire left extremity. Patient states the pain does interfere with her ability perform activities of daily living such as cooking and cleaning. Patient does state that she just went for her evaluation on Wednesday and was told by the provider that she did pass however that it may take a little bit to get the report to our office. Patient has tried and failed conservative treatment such as oral medication, heat and ice, topicals, physical therapy and at home exercising and stretching for longer than 6 weeks. Patient is prescribed meloxicam and [place] from an outside provider. Her Raulito has been reviewed and is appropriate. Review of Systems: General: No recent weight changes, no fever, no sleep disturbances Respiratory: No cough, no shortness of air, no recurring pulmonary infections Cardiovascular/peripheral vascular: No chest pain, no palpitations, no edema, no shortness of breath Gastrointestinal: No new onset incontinence, normal bowel movements reported Genitourinary: No new onset incontinence Musculoskeletal: Low back pain, left leg pain Psychiatric: [Normal mood/affect] Neurological: [Denies weakness in extremities], [denies balance issues] Objective:: Physical Exam: General: Alert and oriented x3, no acute distress, pleasant and cooperative Lungs: Respirations even and unlabored, symmetrical chest expansion Eyes: PERRL Musculoskeletal: Flexion and extension of lumbar [spine] somewhat guarded secondary to pain, [antalgic gait noted] Neurological: Speech clear, no gross sensory deficit Assessment:: Degenerative disc disease of lumbar spine with lumbar radiculopathy symptoms, lumbar facet arthropathy, left hip pain, left leg pain Plan:: The risk and benefits of the spinal cord stimulator trial were gone over again with the patient and she still would like to proceed forward with this plan of care. Patient was told by the provider that she was an appropriate candidate for this device. We will wait to get a copy of the report from their office to confirm this. Patient has tried and failed conservative therapy including oral medications, heat and ice, topicals, recent physical therapy with continued at home exercising and stretching for longer than 6 weeks and injection therapy. We will submit to insurance for the spinal cord stimulator trial and contact the patient once we have official approval to confirm date and time. Patient is not on any blood thinners. Patient has been instructed to contact the clinic with any concerns before the next appointment. Dr. Gallegos has reviewed this note and agrees with this plan of care. This note was dictated using voice recognition software and make contain errors or omissions. [facility] Disclaimer: The information contained in this section may have been updated after the patient was seen, as this information can be updated by other users. 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
== END 2023-09-16 23:59 ==
LOC: SC.PAIN 08:29
PROVIDERS: PCP Physician Assistant; Visit Provider Nurse Practitioner Family
DX: M51.16 Intervertebral disc disorders with radiculopathy, lumbar region (principal); M47.26 Other spondylosis with radiculopathy, lumbar region; M25.552 Pain in left hip; M79.605 Pain in left leg
CPT/HCPCS: 99212; G0463

== ENCOUNTER 2023-11-08 10:36 | Outpatient (POV) | payer OTHER, SELFPAY ==
[2023-11-08 11:25] VITALS: BP 137/89; PULSE 88; RESP 18; O2SAT 97; BMI 28.8
--- NOTE | 2023-11-08 16:08 | A.OFFVIS_ITS ---
[facility] Pain Management SOAP Note Subjective:: Patient is a pleasant 53-year-old female who presents today for spinal cord stimulator denial. We are currently treating the patient for degenerative disc disease of lumbar spine with lumbar radiculopathy symptoms, lumbar facet arthropathy, left hip pain, left leg pain. Today she rates her pain a 6 out of 10. Patient denies any new trauma or injury. She continues to have this chronic pain throughout her low back and radiating down her entire left extremity. She does state that over the weekend she did even have all of a sudden right hip pain that she has never had before. Patient states she feels like she might be compensating for her pain along the left side. Patient states the pain does interfere with her ability perform activities of daily living such as cooking and cleaning. Patient has tried and failed conservative treatment such as oral medication, heat and ice, topicals, physical therapy and at home exercising and stretching for longer than 6 weeks. Patient is prescribed meloxicam and [place] from an outside provider. Her Raul[place] has been reviewed and is appropriate. Review of Systems: General: No recent weight changes, no fever, no sleep disturbances Respiratory: No cough, no shortness of air, no recurring pulmonary infections Cardiovascular/peripheral vascular: No chest pain, no palpitations, no edema, no shortness of breath Gastrointestinal: No new onset incontinence, normal bowel movements reported Genitourinary: No new onset incontinence Musculoskeletal: Low back pain, left leg pain Psychiatric: [Normal mood/affect] Neurological: [Denies weakness in extremities], [denies balance issues] Objective:: Physical Exam: General: Alert and oriented x3, no acute distress, pleasant and cooperative Lungs: Respirations even and unlabored, symmetrical chest expansion Eyes: PERRL Musculoskeletal: Flexion and extension of lumbar [spine] somewhat guarded secondary to pain, [antalgic gait noted] positive left leg raise with decreased sensation to light touch and decreased reflexes Neurological: Speech clear, no gross sensory deficit FINDINGS: LUMBAR SPINE 5 views were obtained. There is no acute fracture. Vertebrae are normal height. There is no malalignment. There is mild anterior osteophyte formation at L2-3, L3-4, L4-5, and L5-S1. There is moderate facet sclerosis in the lower lumbar spine. There is no soft tissue abnormality. IMPRESSION: Degenerative changes with no acute bony abnormality. Reviewed, Interpreted and Dictated by Tera Ferris MD Transcribed by Aislinn Paul Authenticated and [facility] Assessment:: Degenerative disc disease of lumbar spine with lumbar radiculopathy symptoms, lumbar facet arthropathy, left hip pain, left leg pain Plan:: Patient continues to experience significant pain throughout her low back with radiating symptoms primarily down her entire left extremity. Patient does have altered sensation to light touch and decreased reflexes along the left side. Patient does state that she does feel like she does not feel as well along the left side. I have discussed with the patient that I will send her for neurosurgery consult. Patient is experiencing worsening pain we are sending her to Dr. Beth's office for evaluation of possible surgical intervention. It still does seem that the patient would benefit from a spinal cord stimulator trial however we first we will see whether or not if neurosurgery is recommending other alternatives. We will also order imaging since it has been sometime since any updated lumbar imaging was done. We will see about still resending for approval of the spinal cord stimulator trial. Patient agrees with this plan of care. Patient will return to clinic in 1 month for reevaluation of symptoms and plan of care. Patient has been instructed to contact the clinic with any concerns before the next appointment. Dr. Gallegos has reviewed this note and agrees with this plan of care. This note was dictated using voice recognition software and make contain errors or omissions. [facility] Disclaimer: The information contained in this section may have been updated after the patient was seen, as this information can be updated by other users. 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
== END 2023-11-08 23:59 | disposition home or self-care (01) ==
LOC: SC.PAIN 10:37
PROVIDERS: PCP Physician Assistant; Visit Provider Nurse Practitioner Family
DX: M51.16 Intervertebral disc disorders with radiculopathy, lumbar region (principal); M47.26 Other spondylosis with radiculopathy, lumbar region; M25.552 Pain in left hip; M79.605 Pain in left leg
CPT/HCPCS: 99212; G0463

== ENCOUNTER 2023-11-25 14:05 | Outpatient (CLI) | payer OTHER, SELFPAY ==
--- NOTE | 2023-11-25 14:12 | XR_ITS ---
FINAL REPORT CLINICAL HISTORY: LOW BACK PAIN FINDINGS: LUMBAR SPINE 5 views were obtained. There is no acute fracture. Vertebrae are normal height. There is no malalignment. There is mild anterior osteophyte formation at L2-3, L3-4, L4-5, and L5-S1. There is moderate facet sclerosis in the lower lumbar spine. There is no soft tissue abnormality. IMPRESSION: Degenerative changes with no acute bony abnormality. Reviewed, Interpreted and Dictated by Tera Ferris MD Transcribed by Aislinn Paul Authenticated and [facility]
== END 2023-11-25 23:59 | disposition home or self-care (01) ==
LOC: RAD 14:07
PROVIDERS: PCP Physician Assistant; Visit Provider Nurse Practitioner Family
DX: M54.50 Low back pain, unspecified (principal)
CPT/HCPCS: 72110

== ENCOUNTER 2023-12-02 13:42 | Outpatient (CLI) | payer OTHER, SELFPAY ==
--- NOTE | 2023-12-02 13:46 | MR_ITS ---
FINAL REPORT CLINICAL HISTORY: low back pain x 2 years COMPARISON: 01/29/2023 FINDINGS: Multiplanar MR imaging of the lumbar spine was performed without contrast. On the sagittal T2-weighted images, disc degeneration is seen at multiple levels. There is mild leftward curvature. The vertebral alignment is normal. There is no evidence of fracture. The conus has an unremarkable appearance. L1-2: Facet arthropathy is present. There is no significant canal stenosis or neural foraminal narrowing. L2-3: An annular bulge and facet arthropathy are present. There is a right posterolateral disc protrusion with moderate right and mild left neural foraminal narrowing. L3-4: An annular bulge and facet arthropathy are present. There is mild bilateral neural foraminal narrowing. L4-5: An annular bulge is present. Facet arthropathy and osteophytes are present. There is moderate bilateral neural foraminal narrowing. L5-S1: An annular bulge and facet arthropathy are present. There is mild right and moderate left neural foraminal narrowing. IMPRESSION: Multilevel degenerative disc disease and spondylosis. Right posterolateral disc protrusion at L2-3 with moderate right neural foraminal narrowing. Reviewed, Interpreted and Dictated by Nile Rankin III, MD Transcribed by Marilin Lal Authenticated and [facility]
== END 2023-12-02 23:59 | disposition home or self-care (01) ==
LOC: RAD 13:43
PROVIDERS: PCP Physician Assistant; Visit Provider Nurse Practitioner Family
DX: M54.50 Low back pain, unspecified (principal)
CPT/HCPCS: 72148

== ENCOUNTER 2023-12-22 08:41 | Outpatient (POV) | payer OTHER, SELFPAY ==
--- OUTSIDE RECORDS SUMMARY | 2023-12-22 08:44 | XMS_ITS | Clinical Summary ---
Author Name Unknown Address [address] [place] [address] Phone Organization [facility] , [facility] Address [address] [place] [address] Phone Care Team Providers Care Inventory Control Analyst Name Role Phone Daryl MICHAEL, Hal Rosenbaum Unavailable [phone] Francisca Kam PA-C Unavailable [phone] Reason for Visit and Chief Complaint Follow Up Problems Includes: Problems addressed during this encounter and other active Problems All Visits Onset Date Resolved Date Provider Condition S tatus Joint Pain in the Left Hip 02/11/2023 Hal Brito MD Active Last Documented On 3 9:16AM ; [facility], [facility] Plan of Treatment No Plan of Treatment Recorded Assessments Includes: Assessments from this encounter No Assessments Recorded Medical Equipment - Implanted Devices Includes: Current Devices No Medical Equipment Recorded Medications Includes: Medications discussed during this encounter and other current Medications Current Medications (continue as prescribed) HYDROcodone-Acetaminophen 5- 325 MG Oral Tablet 02/05/2023 Provider: Gilbert Gaines MD Diagnosis: Last Documented On 3 9:16AM By Wilver Dias ; [facility], [facility] Losartan Potassium-HCTZ 50-12.5 MG Oral Tablet 023 Provider: Diagnosis: Last Documented On 3 9:16AM By Wilver Dias ; [facility], [facility] Atorvastatin Calcium 20 MG Oral Tablet 01/20/2023 Pr ovider: Gilbert Gaines MD Diagnosis: Last Documented On 3 9:22AM By Wilver Dias ; [facility] DULoxetine HCl 60 MG Oral Ca psule, delayed-release particles 01/20/2023 Provider: Gilbert adame MD Diagnosis: Last Documented On 3 9:22AM By Wilver Dias ; [facility] Vitamin D (Ergocalciferol) 1 .25 MG (88049 UT) Oral Capsule, conventional 01/20/2023 Provider: Gilbert Gaines MD Diagnosis: Last Documented On 3 9:22AM By Wilver Dias ; [facility] Ibuprofen 800 MG Oral Tablet 01/20/2023 Provider: Diagnosis: Last Documented On 3 9:22AM By Wilver Dias ; [facility] QUEtiapine Fumarate 400 MG Oral Tablet 01/20/2023 Pr ovider: Joseluis Irving APRN Diagnosis: Last Documented On 3 9:22AM By Wilver Dias ; [facility], [facility] Medications Administered Includes: Administered Medications from this encounter No Administered Medications Recorded Results Includes: Results discussed during this encounter No Results Recorded For Specified Dates History of Present Illness Includes: History of Present Illness from this encounter No History of Present Illness Recorded Social History No Social History Recorded - Smoking Status Unknown Medical History Includes: Medical History addressed during this encounter No Medical History Recorded Family History Includes: Family History addressed during this encounter No Family History Recorded Review of Systems Includes: Review of Systems from this encounter No Review of Systems Recorded Mental Status Includes: Mental Status from this encounter No Mental Status Recorded Functional Status Includes: Functional Status from this encounter No Functional Status Recorded Physical Exam Includes: Physical Exam from this encounter No Physical Exam Recorded Allergies Includes: Active Allergies No Known Allergies Insurance Includes: Active Insurance Policies Plan Name Member ID Group # Subscriber Relationship Effect jaya Dates 1 - [employer] [facility] [id number] Marlee Cobos Self Clinical Notes Includes: Clinical Notes from this encounter No Clinical Notes Recorded
--- OUTSIDE RECORDS SUMMARY | 2023-12-22 08:44 | XMS_ITS | Clinical Summary ---
Author Name Unknown Address [address] [place] [address] Phone Organization [facility] , [facility] Address [address] [place] [address] Phone Care Team Providers Care Paper Mill Superintendent Name Role Phone Daryl MICHAEL, Hal Rosenbaum Unavailable [phone] Francisca Kam PA-C Unavailable [phone] Reason for Visit and Chief Complaint The Chief Complaint is: Left Hip Pain Problems Includes: Problems addressed during this encounter and other active Problems Current Visit Onset Date Resolved Date Provider Albaro rosario Status Joint Pain in the Left Hip 02/11/2023 Hal Brito MD Active Last Documented On 3 9:16AM ; [facility] Plan of Treatment Instructions to patient Lose weight Last Documented On 3 9:23AM ; [facility] Assessments Includes: Assessments from this encounter Findings - Overweight - Last Documented On 02/15/2023 1:28PM ; [facility], [facility] Instructions Includes: Instructions from this encounter Instructions to patient Lose weight Last Documented On 3 9:23AM ; [facility] Medical Equipment - Implanted Devices Includes: Current Devices No Medical Equipment Recorded Medications Includes: Medications discussed during this encounter and other current Medications Discontinued / Stopped on this date on 02/02/2023 Losartan Potassium-HCTZ 50-12.5 MG Oral Tablet Provider: Diagnosis: Last Documented On 3 9:21AM By Wilver Dias ; [facility], [facility] Losartan Potassium-HCTZ 50-12.5 MG Oral Tablet Provider: Diagnosis: Last Documented On 3 9:21AM By Wilver Dias ; [facility], [facility] New / Renewed during this visit Hal Brito MD on 02/11/2023 Meloxicam 15 MG Oral Tablet Provider: Hal Brito MD 30 day supply: 30 tablet, 1 refills Diagnosis: Take one tablet my mouth once a day Pharmacy: [facility] [address] [place] [address] Ismael Hern[place]es [place], [id number] - Last Documented On 3 9:52AM By Meseret Gaitan ; [facility], [facility] Current Medications (continue as prescribed) HYDROcodone-Acetaminophen 5- 325 MG Oral Tablet 02/05/2023 Provider: Gilbert Gaines MD Diagnosis: Last Documented On 3 9:16AM By Wilver Dias ; [facility], [facility] Losartan Potassium-HCTZ 50-12.5 MG Oral Tablet 023 Provider: Diagnosis: Last Documented On 3 9:16AM By Wilver Dias ; [facility], [facility] Atorvastatin Calcium 20 MG Oral Tablet 01/20/2023 Pr ovider: Gilbert Gaines MD Diagnosis: Last Documented On 3 9:22AM By Wilver Dias ; [facility], [facility] DULoxetine HCl 60 MG Oral Ca psule, delayed-release particles 01/20/2023 Provider: Gilbert adame MD Diagnosis: Last Documented On 3 9:22AM By Wilver Dias ; [facility], [facility] Vitamin D (Ergocalciferol) 1 .25 MG (81080 UT) Oral Capsule, conventional 01/20/2023 Provider: Gilbert Gaines MD Diagnosis: Last Documented On 3 9:22AM By Wilver Dias ; [facility], [facility] Ibuprofen 800 MG Oral Tablet 01/20/2023 Provider: Diagnosis: Last Documented On 3 9:22AM By Wilver Dias ; [facility], [facility] QUEtiapine Fumarate 400 MG Oral Tablet 01/20/2023 Pr ovider: Joseluis Irving APRN Diagnosis: Last Documented On 3 9:22AM By Wilver Dias ; [facility], [facility] Medications Administered Includes: Administered Medications from this encounter No Administered Medications Recorded Vital Signs Includes: Vital Signs from this encounter Vital Name 02/11/2023 09:22A Height (in) 64 Weight (lb) 161 Body Mass Index 27.6 Body Surface Area 1.8 Note: AM Last Documented: On 02/11/2023 9:22AM ; [facility], [facility] Results Includes: Results discussed during this encounter No Results Recorded For Specified Dates History of Present Illness Includes: History of Present Illness from this encounter KATI Cobos is a 53 year old female. 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 On 3 1:28PM ; [facility], [facility] Smoking Status Unknown Procedures and Surgical History Includes: Procedures from this encounter Procedures Code Diagnosis Performing Provider Service L ocation Service Date use of tobacco assessment performed 1000F Last Documented On 3 9:17AM ; [facility], [facility] review of medications documented 1160F Last Documented On 3 9:17AM ; [facility], [facility] Surgical History Last Updated History of hysterectomy 02/11/2023 Last Documented On 3 1:28PM ; [facility], [facility] Medical History Includes: Medical History addressed during this encounter Description Last Updated History of depression 02/11/2023 Last Documented On 3 1:28PM ; [facility], [facility] History of Sleep Apnea 02/11/2023 Last Documented On 3 1:28PM ; [facility], [facility] Family History Includes: Family History addressed during this encounter Description Last Updated Maternal history of family history of he art disease 02/11/2023 Last Documented On 3 1:28PM ; [facility], [facility] Paternal history of family history of he art disease 02/11/2023 Last Documented On 3 1:28PM ; [facility], [facility] Review of Systems Includes: Review of Systems from this encounter Psychological: Anxiety and depression. Mental Status Includes: Mental Status from this encounter Description Anxiety Functional Status Includes: Functional Status from this encounter No Functional Status Recorded Physical Exam Includes: Physical Exam from this encounter Allergies Includes: Active Allergies No Known Allergies Encounters Encounter Provider Location Date Check-In Time Check-Out Time Diagnosis Physician Specified Hal Brito MD [facility] [place] 02/12/20 23 9:14AM 9:52AM Overweight Insurance Includes: Active Insurance Policies Plan Name Member ID Group # Subscriber Relationship Effect jaya Dates 1 - [facility] [id number] Marlee Cobos Self Clinical Notes Includes: Clinical Notes from this encounter * Progress note Date Encounter Last Documented by 02/11/2023 Physician Specified Last soniaumen michaela on 02/15/2023; 1:28 PM, Hal Brito MD; [facility], [facility] Active Problems & Conditions - Joint Pain in the Left Hip Chief Complaint The Chief Complaint is: Left Hip Pain. Referred Here Referred by Self. History of Present Illness Marlee Cobos is a 53 year old female. - Allergy list reviewed - Problem list reviewed - Medication list reviewed Current Medication - Atorvastatin Calcium 20 MG Oral Tablet 30 days, 0 refills - DULoxetine HCl 60 MG Oral Capsule, delayed-release particles Capsule Delayed Release Particles 30 days, 0 refills - HYDROcodone-Acetaminophen 5-325 MG Oral Tablet 15 days, 0 refills - Ibuprofen 800 MG Oral Tablet 30 days, 0 refills - Losartan Potassium-HCTZ 50-12.5 MG Oral Tablet 30 days, 0 refills - QUEtiapine Fumarate 400 MG Oral Tablet 30 days, 0 refills - Vitamin D (Ergocalciferol) 1.25 MG (30929 UT) Oral Capsule, conventional 28 days, 0 refills Past Medical/Surgical History Diagnoses: Sleep Apnea. Depression Surgical: - Hysterectomy Social History Tobacco use: Tobacco non-user. 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 Allergies - No Known Allergies Family History Paternal: Heart disease Maternal: Heart disease Review Of Systems Psychological: Anxiety and depression. Physical Findings - Vitals taken 02/11/2023 09:22 am AM Height 64 in Weight 161 lbs Body Mass Index 27.6 kg/m2 Body Surface Area 1.8 m2 Assessment - Overweight Previous Tests Available previous imaging studies were reviewed Available previous history reviewed Counseling/Education - Lose weight Plan StartCited - Other Meloxicam 15 MG tablet Take one tablet my mouth once a day, 30 days, 1 refills EndCited Notes This dictation was done with voice recognition software and may contain errors and omissions. Patient is here with complaints of left hip pain. Is over her greater trochanter. She had an injection which did help her. She is done physical therapy. She has not taken anti-inflammatories. On exam she is tender over her greater trochanter. She has no limp today. She has good strength both lower extremities normal sensation palpable pulse good skin turgor. I reviewed her MRI of her lumbar spine as well as her pelvis does show some inflammation in the tendon and also a bursitis. I do believe she has a trochanteric bursitis and I went over an exercise program for her to do at home and were going to try an anti-inflammatory oral. We will see her back in 6 weeks. Practice Management Use of tobacco assessment performed Review of medications documented. Care Team - Francisca Kam PA-C Health Reminders - Assess BMI satisfied 02/11/2023. - Assess Tobacco Use satisfied 02/11/2023. - Follow Up Plan BMI Management satisfied 02/11/2023.
--- OUTSIDE RECORDS SUMMARY | 2023-12-22 08:44 | XMS_ITS ---
Care Plan - [facility], [facility] Created on: December 22, 2023 Marlee Cobos : 1970 Sex: Female Author Name Unknown Address [address] [place] [address] Phone Organization [facility] Address [address] [place] [address] Phone Care Team Providers Care Die Turner Name Role Phone Daryl MICHAEL, Hal Rosenbaum Unavailable [phone] Francisca Kam PA-C Unavailable [phone]
--- OUTSIDE RECORDS SUMMARY | 2023-12-22 08:44 | XMS_ITS ---
Author Name Unknown Address [address] [address] Phone Organization [facility] , [facility] Address [address] [place] [place] [address] Phone Care Team Providers Care Export Clerk Name Role Phone Daryl MICHAEL, Hal Rosenbaum Unavailable [phone] Francisca Kam PA-C Unavailable [phone] Problems Includes: Active, inactive, and resolved Problems All Visits Onset Date Resolved Date Provider Condition S tatus Joint Pain in the Left Hip 02/11/2023 Hal Brito MD Active Last Documented On 3 9:16AM ; [facility], [facility] Plan of Treatment Instructions to patient Lose weight Last Documented On 3 9:23AM ; [facility], [facility] Assessments Includes: Assessments for all patient encounters Findings Encounter Date Overweight Physician Specified with Hal Brito MD 02/11/2023 Last Documented On 3 1:28PM ; [facility], [facility] Instructions Includes: Instructions for all patient encounters Instructions to patient Lose weight Last Documented On 3 9:23AM ; [facility], [facility] Medical Equipment - Implanted Devices Includes: Current and historical Devices No Medical Equipment Recorded Medications Includes: Current and historical Medications Current Medications (continue as prescribed) HYDROcodone-Acetaminophen 5- 325 MG Oral Tablet 02/05/2023 Provider: Gilbert Gaines MD Diagnosis: Last Documented On 3 9:16AM By Wilver Dias ; [facility], [facility] Losartan Potassium-HCTZ 50-12.5 MG Oral Tablet 023 Provider: Diagnosis: Last Documented On 3 9:16AM By Wilver Dias ; [facility], [facility] Atorvastatin Calcium 20 MG Oral Tablet 01/20/2023 Pr ovider: Gilbert Gaines MD Diagnosis: Last Documented On 3 9:22AM By Wilver Dias ; [facility], [facility] DULoxetine HCl 60 MG Oral Ca psule, delayed-release particles 01/20/2023 Provider: Gilbert adame MD Diagnosis: Last Documented On 3 9:22AM By Wilver Dias ; [facility], [facility] Vitamin D (Ergocalciferol) 1 .25 MG (59938 UT) Oral Capsule, conventional 01/20/2023 Provider: Gilbert Gaines MD Diagnosis: Last Documented On 3 9:22AM By Wilver Dias ; [facility], [facility] Ibuprofen 800 MG Oral Tablet 01/20/2023 Provider: Diagnosis: Last Documented On 3 9:22AM By Wilver Dias ; [facility], [facility] QUEtiapine Fumarate 400 MG Oral Tablet 01/20/2023 Pr ovider: Joesluis Irving APRN Diagnosis: Last Documented On 3 9:22AM By Wilver Dias ; [facility], [facility] Past Medications on file Meloxicam 15 MG Oral Tablet 02/11/2023 - 04/12/2023 Pr ovider: Hal Brito MD Diagnosis: Take one tablet my mouth once a day Last Documented On 3 9:52AM By Meseret Gaitan ; [facility], [facility] Losartan Potassium-HCTZ 50-12.5 MG Oral Tablet 0 02/02/2023 - 02/11/2023 Provider: Diagnosis: Last Documented On 3 9:21AM By Wilver Dias ; [facility], [facility] Losartan Potassium-HCTZ 50-12.5 MG Oral Tablet 0 02/02/2023 - 02/11/2023 Provider: Diagnosis: Last Documented On 3 9:21AM By Wilver Dias ; [facility], [facility] Medications Administered Includes: Administered Medications in patient's chart No Administered Medications Recorded Vital Signs Includes: Vital Signs from 12/21/2022 through 12/22/2023 Vital Name 02/11/2023 09:22A Height (in) 64 Weight (lb) 161 Body Mass Index 27.6 Body Surface Area 1.8 Note: AM Last Documented: On 02/11/2023 9:22AM ; [facility] Results Includes: Results from 12/21/2022 through 12/22/2023 No Results Recorded For Specified Dates History of Present Illness History of Present Illness not supported for this document type No History of Present Illness Recorded Social History Description Last Updated Tobacco non-user 02/11/2023 Last Documented On 3 1:28PM ; [facility] 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 Last Documented On 3 1:28PM ; [facility] Smoking Status Unknown Procedures and Surgical History Surgical History Last Updated History of hysterectomy 02/11/2023 Last Documented On 3 1:28PM ; [facility] Medical History Includes: Medical History in patient's chart Description Last Updated History of depression 02/11/2023 Last Documented On 3 1:28PM ; [facility] History of Sleep Apnea 02/11/2023 Last Documented On 3 1:28PM ; [facility] Family History Includes: Family History in patient's chart Description Last Updated Maternal history of family history of he art disease 02/11/2023 Last Documented On 3 1:28PM ; [facility] Paternal history of family history of he art disease 02/11/2023 Last Documented On 3 1:28PM ; [facility] Review of Systems Review of Systems not supported for this document type No Review of Systems Recorded Mental Status Description Anxiety Functional Status No Functional Status Recorded Physical Exam Physical Exam not supported for this document type No Physical Exam Recorded Allergies Includes: Active, inactive, and resolved Allergies No Known Allergies Encounters Includes: Encounters from 12/21/2022 through 12/22/2023 Encounter Provider Location Date Check-In Time Check-Out Time Diagnosis Physician Specified Hal Brito MD [facility] 02/12/20 23 9:14AM 9:52AM Overweight Insurance Includes: Active Insurance Policies Plan Name Member ID Group # Subscriber Relationship Effect jaya Dates 1 - [facility] [id number] Marlee Cobos Self Clinical Notes Includes: Signed Clinical Notes starting from 06/11/2022 * Progress note Date Encounter Last Documented by 02/11/2023 Physician Specified Last yordan jennings on 02/15/2023; 1:28 PM, Hal Brito MD; [facility], [facility] Active Problems & Conditions - Joint [...] refills - Vitamin D (Ergocalciferol) 1.25 MG (73636 UT) Oral Capsule, conventional 28 days, 0 refills Past Medical/Surgical History Diagnoses: Sleep Apnea. Depression Surgical: - Hysterectomy Social History Tobacco use: Tobacco non-user. 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 Allergies - No Known Allergies Family History [...]
[2023-12-22 08:55] VITALS: BP 119/87; PULSE 103; RESP 18; O2SAT 96; BMI 28.8
--- NOTE | 2023-12-22 08:55 | EXP.PAIN.SOA ---
[facility] Disclaimer: The information contained in this section may have been updated after the patient was seen, as this information can be updated by other users. Medical History (Updated 12/22/23 @ 08:58 by Lavinia Brito APRN) Spondylosis DDD (degenerative disc disease) Hamstring tear Labral tear of left hip joint Attention deficit hyperactivity disorder (ADHD) Vitamin D deficiency (~11/25/17) Hyperlipidemia (~11/25/17) Osteoarthritis Insomnia Depression Surgical History Hx of tubal ligation H/O: hysterectomy Family History Other Heart attack Hypertension Social History Smoking Status: Never smoker second hand exposure: No alcohol intake: never substance use type: denies use current occupational status: other Travel in the last 8 weeks: None household members: spouse housing: house 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 Today she rates her pain a 6 out of 10. Patient denies any new trauma or injury. Patient does states she continues to have her chronic pain throughout her low back with radiating down her entire left extremity. She denies any symptoms going down the right. Patient does state the pain still interferes with her ability perform activities of daily living such as cooking and cleaning. Patient has tried [id number] medications such as Tylenol and ibuprofen along with heat and ice and topicals with minimal relief. Patient has also been tried on [place] however states that she did not like the way it made her feel so she discontinued this medication. Patient does take meloxicam daily and states it may do a little bit of help however really does not notice significant relief. At our last visit we did send her for neurosurgeon consult and she states she has not heard from this office. We are also going to go over her updated lumbar MRI imaging results today. Patient has tried physical therapy and continued at home stretching exercise for longer than 6 weeks with no additional change. Patient was found to be an appropriate candidate for the spinal cord stimulator trial however it was denied by insurance. Patient is still interested in this option. Her Raulito has been reviewed and is appropriate. Injections: Left bursa injection 05/11/2023 Left hip injection 04/06/2023 Review of Systems: General: No recent weight changes, no fever, no sleep disturbances Respiratory: No cough, no shortness of air, no recurring pulmonary infections Cardiovascular/peripheral vascular: No chest pain, no palpitations, no edema, no shortness of breath Gastrointestinal: No new onset incontinence, normal bowel movements reported Genitourinary: No new onset incontinence Musculoskeletal: Low back pain, left leg pain Psychiatric: [Normal mood/affect] Neurological: [Denies weakness in extremities], [denies balance issues] Pain at rest (0-10 scale): 6 Objective Objective:: Physical Exam: General: Alert and oriented x3, no acute distress, pleasant and cooperative Lungs: Respirations even and unlabored, symmetrical chest expansion Eyes: PERRL Musculoskeletal: Flexion and extension of lumbar [spine] somewhat guarded secondary to pain, [antalgic gait noted] Neurological: Speech clear, no gross sensory deficit Has patient had previous pain injection?: No Conservative treatment options previously tried: NSAIDS Length of treatment: >6 weeks, Home exercise plan Length of treatment: >6 weeks, Physical Therapy Length of treatment: >6 weeks and Prescription medications Length of treatment: >6 weeks Meds Home Medications and Allergies Home Medications Medication Instructions Recorded Confirmed Type atorvastatin 20 mg tablet 20 mg PO DAILY Cholesterol 03/24/23 09/16/23 History duloxetine 60 mg capsule,delayed 60 mg PO DAILY MOOD 03/24/23 09/16/23 History release ergocalciferol (vitamin D2) 1,250 1,250 mcg PO WEEKLY SUPPLIMENT 03/24/23 09/16/23 History mcg (50,000 unit) capsule valacyclovir 1 gram tablet 1,000 mg PO BID #60 tabs 06/03/23 09/16/23 Rx (Valtrex) hydrocodone 7.5 mg-acetaminophen 1 tab PO BID #60 tabs 07/29/23 09/16/23 Rx 325 mg tablet naproxen 500 mg tablet 500 mg PO BID #20 tabs 08/02/23 09/16/23 Rx sennosides 8.6 mg tablet (senna) 8.6 mg PO DAILY #30 tabs 08/02/23 09/16/23 Rx dextroamphetamine-amphetamine 30 30 mg PO TID Mood #90 tabs 08/10/23 09/16/23 Rx mg tablet losartan 50 mg-hydrochlorothiazide See Rx Instructions .Route 08/25/23 09/16/23 Rx 12.5 mg tablet .COMPLEX #90 tabs meloxicam 15 mg tablet 15 mg PO DAILY #30 tabs 10/18/23 Rx cholecalciferol (vitamin D3) 25 See Rx Instructions .Route 11/23/23 Rx mcg (1,000 unit) tablet .COMPLEX #90 tabs ibuprofen 800 mg tablet 800 mg PO BID PRN Pain #60 tabs 11/30/23 Rx quetiapine 400 mg tablet 400 mg PO HS #90 tabs 11/30/23 Rx New Prescriptions to Start Prescriptions: Allergies Allergy/AdvReac Type Severity Reaction Status Date / Time No Known Allergies Allergy Verified 08/27/23 09:45 Assessment and Plan *Assessment and plan (1) Trochanteric bursitis, left hip: Status: Acute Category: Medical Code(s): M70.62 - Trochanteric bursitis, left hip (2) Left hip pain: Status: Acute Category: Medical Code(s): M25.552 - Pain in left hip (3) Lumbar radiculopathy: Status: Acute Category: Medical Code(s): M54.16 - Radiculopathy, lumbar region (4) Chronic pain syndrome: Status: Acute Category: Medical Code(s): G89.4 - Chronic pain syndrome (5) Lumbar facet arthropathy: Status: Acute Category: Medical Code(s): M47.816 - Spondylosis without myelopathy or radiculopathy, lumbar region Plan We will reach back out to Dr. Beth's office to see why there is a delay in getting her in for evaluation. I have still gone over the risks and benefits of the spinal cord stimulator trial and she still states she would like to to proceed forward with this option. Patient has also tried and failed injection therapy. We will wait until she is evaluated with neurosurgery to resubmit for the spinal cord stimulator trial. Patient is agreeable to this option. I will send in a 2-week dose of baclofen 5 mg 3 times daily. Patient will return to clinic in 1 month for reevaluation of symptoms and plan of care. Patient has been instructed to contact the clinic with any concerns before the next appointment. Dr. Gallegos has reviewed this note and agrees with this plan of care. This note was dictated using voice recognition software and make contain errors or omissions.
== END 2023-12-22 23:59 | disposition home or self-care (01) ==
LOC: SC.PAIN 08:41
PROVIDERS: PCP Physician Assistant; Visit Provider Nurse Practitioner Family
DX: G89.4 Chronic pain syndrome (principal); M70.62 Trochanteric bursitis, left hip; M25.552 Pain in left hip; M47.26 Other spondylosis with radiculopathy, lumbar region
CPT/HCPCS: 99212; G0463

== ENCOUNTER 2024-01-20 14:31 | Outpatient (POV) | payer OTHER, SELFPAY ==
[2024-01-20 14:38] VITALS: BP 129/86; PULSE 93; RESP 18; O2SAT 97; BMI 28.8
--- NOTE | 2024-01-20 14:52 | EXP.PAIN.SOA ---
[facility] Disclaimer: The information contained in this section may have been updated after the patient was seen, as this information can be updated by other users. Medical History (Updated 01/20/24 @ 14:56 by Lavinia Brito APRN) Spondylosis DDD (degenerative disc disease) Hamstring tear Labral tear of left hip joint Attention deficit hyperactivity disorder (ADHD) Vitamin D deficiency (~11/25/17) Hyperlipidemia (~11/25/17) Osteoarthritis Insomnia Depression Surgical History Hx of tubal ligation H/O: hysterectomy Family History Other Heart attack Hypertension Social History Smoking Status: Never smoker second hand exposure: No alcohol intake: never substance use type: denies use current occupational status: other Travel in the last 8 weeks: None household members: spouse housing: house 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 Today she rates her pain a 6 out of 10. Patient denies any new trauma or injury however she states that she is starting to have more low back pain and denies any radiating symptoms down her leg. Patient describes it as a sharp sensation that is worse with certain activities such as bending, twisting or lifting. 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 Patient is interested in any help we may be able to provide. Patient has continued to do at home stretching and exercise for longer than 6 weeks with no additional relief. Patient has also been tried on different medications with no additional change including muscle relaxers and anti-inflammatories. Patient does state that she does have an appointment with Dr. Beth's office coming up on March 11. Patient was previously found to be an appropriate candidate for spinal cord stimulator trial however she was denied by insurance. Patient is still very interested in this option. Her Rualito has been reviewed and is appropriate. Review of Systems: General: No recent weight changes, no fever, no sleep disturbances Respiratory: No cough, no shortness of air, no recurring pulmonary infections Cardiovascular/peripheral vascular: No chest pain, no palpitations, no edema, no shortness of breath Gastrointestinal: No new onset incontinence, normal bowel movements reported Genitourinary: No new onset incontinence Musculoskeletal: Low back pain Psychiatric: [Normal mood/affect] Neurological: [Denies weakness in extremities], [denies balance issues] Pain at rest (0-10 scale): 6 Objective Objective:: Physical Exam: General: Alert and oriented x3, no acute distress, pleasant and cooperative Lungs: Respirations even and unlabored, symmetrical chest expansion Eyes: PERRL Musculoskeletal: Flexion and extension of lumbar [spine] somewhat guarded secondary to pain, [antalgic gait noted] positive Kemps test Neurological: Speech clear, no gross sensory deficit FINDINGS: Multiplanar MR imaging of the lumbar spine was performed without contrast. On the sagittal T2-weighted images, disc degeneration is seen at multiple levels. There is mild leftward curvature. The vertebral alignment is normal. There is no evidence of fracture. The conus has an unremarkable appearance. L1-2: Facet arthropathy is present. There is no significant canal stenosis or neural foraminal narrowing. L2-3: An annular bulge and facet arthropathy are present. There is a right posterolateral disc protrusion with moderate right and mild left neural foraminal narrowing. L3-4: An annular bulge and facet arthropathy are present. There is mild bilateral neural foraminal narrowing. L4-5: An annular bulge is present. Facet arthropathy and osteophytes are present. There is moderate bilateral neural foraminal narrowing. L5-S1: An annular bulge and facet arthropathy are present. There is mild right and moderate left neural foraminal narrowing. IMPRESSION: Multilevel degenerative disc disease and spondylosis. Right posterolateral disc protrusion at L2-3 with moderate right neural foraminal narrowing. Reviewed, Interpreted and Dictated by Nile Rankin III, MD Transcribed by Marilin Lal Authenticated and [facility] Has patient had previous pain injection?: No Conservative treatment options previously tried: Home exercise plan Length of treatment: Longer than 6 weeks and Prescription medications Length of treatment: Longer than 6 weeks Meds Home Medications and Allergies Home Medications ?Medication ?Instructions ?Recorded ?Confirmed ?Type atorvastatin 20 mg tablet 20 mg PO DAILY Cholesterol 03/24/23 12/22/23 History duloxetine 60 mg capsule,delayed 60 mg PO DAILY MOOD 03/24/23 12/22/23 History release ergocalciferol (vitamin D2) 1,250 1,250 mcg PO WEEKLY SUPPLIMENT 03/24/23 12/22/23 History mcg (50,000 unit) capsule valacyclovir 1 gram tablet 1,000 mg PO BID #60 tabs 06/03/23 12/22/23 Rx (Valtrex) hydrocodone 7.5 mg-acetaminophen 1 tab PO BID #60 tabs 07/29/23 12/22/23 Rx 325 mg tablet naproxen 500 mg tablet 500 mg PO BID #20 tabs 08/02/23 12/22/23 Rx sennosides 8.6 mg tablet (senna) 8.6 mg PO DAILY #30 tabs 08/02/23 12/22/23 Rx dextroamphetamine-amphetamine 30 30 mg PO TID Mood #90 tabs 08/10/23 12/22/23 Rx mg tablet losartan 50 mg-hydrochlorothiazide See Rx Instructions .Route 08/25/23 12/22/23 Rx 12.5 mg tablet .COMPLEX #90 tabs cholecalciferol (vitamin D3) 25 See Rx Instructions .Route 11/23/23 12/22/23 Rx mcg (1,000 unit) tablet .COMPLEX #90 tabs meloxicam 15 mg tablet 15 mg PO DAILY #30 tabs 12/23/23 Rx ibuprofen 800 mg tablet 800 mg PO BID PRN Pain #60 tabs 12/28/23 Rx quetiapine 400 mg tablet 400 mg PO HS #90 tabs 12/28/23 Rx New Prescriptions to Start Prescriptions: Allergies Allergy/AdvReac Type Severity Reaction Status Date / Time No Known Allergies Allergy Verified 08/27/23 09:45 Assessment and Plan *Assessment and plan (1) Lumbar facet arthropathy: Status: Acute Category: Medical Code(s): M47.816 - Spondylosis without myelopathy or radiculopathy, lumbar region (2) Chronic pain syndrome: Status: Acute Category: Medical Code(s): G89.4 - Chronic pain syndrome (3) Lumbar radiculopathy: Status: Acute Category: Medical Code(s): M54.16 - Radiculopathy, lumbar region (4) DDD (degenerative disc disease): Status: Acute Qualifiers: Spinal region: lumbar Qualified Code(s): M51.36 - Other intervertebral disc degeneration, lumbar region Category: Medical Plan Patient is experiencing worsening pain in her lower back with no radiating symptoms to her legs. Patient did have limited range of motion of her lumbar spine and a positive Kemps test. I have discussed with patient that she may benefit from a lumbar medial branch block. Risk and benefits were discussed with patient and she would like to proceed forward with this plan of care. Patient has tried and failed conservative therapy including continued at home stretching exercise for longer than 6 weeks with no additional changes. We will submit to insurance for the lumbar MBB bilaterally L4-L5 and L5-S1 under fluoroscopy. Patient has been instructed to contact the clinic with any concerns before the next appointment. Dr. Gallegos has reviewed this note and agrees with this plan of care. This note was dictated using voice recognition software and make contain errors or omissions. All injections are used with Lidocaine or Bupivacaine and Depo Medrol.
== END 2024-01-20 23:59 | disposition home or self-care (01) ==
LOC: SC.PAIN 14:32
PROVIDERS: PCP Physician Assistant; Visit Provider Nurse Practitioner Family
DX: M47.816 Spondylosis without myelopathy or radiculopathy, lumbar region (principal); G89.4 Chronic pain syndrome; M51.16 Intervertebral disc disorders with radiculopathy, lumbar region; Z79.899 Other long term (current) drug therapy; Z73.89 Other problems related to life management difficulty
CPT/HCPCS: 99212; G0463

== ENCOUNTER 2024-02-01 09:39 | Day surgery (SDC) | payer OTHER, SELFPAY ==
[2024-02-01 10:02] VITALS: BP 124/90; PULSE 98; RESP 18; TEMP 36.5; O2SAT 96; BMI 28.8
[2024-02-01] MEDS: LIDOCAINE 1% 5ML PF VIAL 5 ML (10:09)
[2024-02-01] MEDS: BUPIVACAINE 0.25% 10ML INJ 25 MG IJ (10:10)
[2024-02-01] MEDS: methylPREDNISolone ACETATE 80MG/ML VIAL 80 MG (10:10)
[2024-02-01 10:12] VITALS: BP 138/94; PULSE 101; RESP 18; O2SAT 95
[2024-02-01 10:13] VITALS: BP 138/94; PULSE 101; RESP 18; O2SAT 95
[2024-02-01 10:15] VITALS: BP 130/91; PULSE 96; RESP 18; O2SAT 96
--- NOTE | 2024-02-01 10:16 | P.PCN_ITS ---
Procedure Date: 02/01/24 Time: 10:00 Anesthesiologist:: Irvin Saenz CRNA Complications:: None Pre-procedure Diagnosis:: Degenerative disc lumbar spine at the levels. Lumbar radiculopathy. Lumbar spondylosis. Multilevel lumbar facet arthropathy. Post-procedure Diagnosis:: Same. Indications for Procedure:: Patient is a very pleasant 54-year-old female who comes to clinic today for around 1 medial branch blocks/facet injections at the lumbar L4-5, L5-S1 level bilaterally. Patient describes low back pain is constant, dull, aching. She reports difficulty with flexion, extension, left and right rotation. Procedure Details:: Informed consent was obtained and the risk and benefits of the procedure was explained to the patient. Patient was taken to the procedure room where noninvasive monitors were placed, including noninvasive blood pressure cuff as well as pulse oximeter. The area over the lumbar spine was cleansed using chlorhexidine as a cleansing solution. I anesthetized the skin and subcutaneous tissues with 1% Lidocaine. I placed 22-gauge spinal needles into the facet joint/ medial branches of L4-L5, and L5-S1] bilaterally. Needle placement was confirmed with fluoroscopy. After confirmation of needle placement, each site was injected with 1 mL of 1% lidocaine and 0.25 % Marcaine and 10 mg of Depo- Medrol. A total of 80 mg of depo medrol was used for bilateral medial branch blocks of L4-L5, and L5-S1] bilaterally. Patient tolerated the procedure without difficulty. There were no complications. Plan and Disposition:: Patient was discharged out incident.
== END 2024-02-01 10:15 | disposition home or self-care (01) ==
PROVIDERS: PCP Physician Assistant; Visit Provider Nurse Anesthetist, Certified Registered
DX: M47.816 Spondylosis without myelopathy or radiculopathy, lumbar region (principal); M51.16 Intervertebral disc disorders with radiculopathy, lumbar region
CPT/HCPCS: 64493; 64494; J1010

== ENCOUNTER 2024-02-21 09:45 | Outpatient (POV) | payer OTHER, SELFPAY ==
--- NOTE | 2024-02-21 10:22 | EXP.PAIN.SOA ---
[facility] Disclaimer: The information contained in this section may have been updated after the patient was seen, as this information can be updated by other users. 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 Patient rates her pain today a 0 out of 10. She states she has had 100% relief and feels like it is still helping. She has been able to increase her activity with overall decreased pain and feels much more functional. Her Raulito has been reviewed and is appropriate. Patient is scheduled to see Dr. Beth on 21 of March. Review of Systems: General: No recent weight changes, no fever, no sleep disturbances Respiratory: No cough, no shortness of air, no recurring pulmonary infections Cardiovascular/peripheral vascular: No chest pain, no palpitations, no edema, no shortness of breath Gastrointestinal: No new onset incontinence, normal bowel movements reported Genitourinary: No new onset incontinence Musculoskeletal: Low back pain Psychiatric: [Normal mood/affect] Neurological: [Denies weakness in extremities], [denies balance issues] Pain at rest (0-10 scale): 0 Objective Objective:: Physical Exam: General: Alert and oriented x3, no acute distress, pleasant and cooperative Lungs: Respirations even and unlabored, symmetrical chest expansion Eyes: PERRL Musculoskeletal: Flexion and extension of lumbar within normal limits Neurological: Speech clear, no gross sensory deficit Has patient had previous pain injection?: Yes Percent improvement in pain since last injection: 100% Conservative treatment options previously tried: Home exercise plan Length of treatment: Longer than 6 weeks Meds Home Medications and Allergies Home Medications ?Medication ?Instructions ?Recorded ?Confirmed ?Type atorvastatin 20 mg tablet 20 mg PO DAILY Cholesterol 03/24/23 02/01/24 History duloxetine 60 mg capsule,delayed 60 mg PO DAILY MOOD 03/24/23 02/01/24 History release ergocalciferol (vitamin D2) 1,250 1,250 mcg PO WEEKLY SUPPLIMENT 03/24/23 02/01/24 History mcg (50,000 unit) capsule valacyclovir 1 gram tablet 1,000 mg PO BID #60 tabs 06/03/23 02/01/24 Rx (Valtrex) hydrocodone 7.5 mg-acetaminophen 1 tab PO BID #60 tabs 07/29/23 02/01/24 Rx 325 mg tablet naproxen 500 mg tablet 500 mg PO BID #20 tabs 08/02/23 02/01/24 Rx sennosides 8.6 mg tablet (senna) 8.6 mg PO DAILY #30 tabs 08/02/23 02/01/24 Rx dextroamphetamine-amphetamine 30 30 mg PO TID Mood #90 tabs 08/10/23 02/01/24 Rx mg tablet losartan 50 mg-hydrochlorothiazide See Rx Instructions .Route 08/25/23 02/01/24 Rx 12.5 mg tablet .COMPLEX #90 tabs cholecalciferol (vitamin D3) 25 See Rx Instructions .Route 11/23/23 02/01/24 Rx mcg (1,000 unit) tablet .COMPLEX #90 tabs meloxicam 15 mg tablet 15 mg PO DAILY #30 tabs 01/24/24 02/01/24 Rx ibuprofen 800 mg tablet 800 mg PO BID PRN Pain #60 tabs 02/18/24 Rx quetiapine 400 mg tablet 400 mg PO HS #90 tabs 02/18/24 Rx New Prescriptions to Start Prescriptions: Allergies Allergy/AdvReac Type Severity Reaction Status Date / Time No Known Allergies Allergy Verified 02/01/24 10:03 Assessment and Plan *Assessment and plan (1) Lumbar facet arthropathy: Status: Acute Category: Medical Code(s): M47.816 - Spondylosis without myelopathy or radiculopathy, lumbar region Plan Patient has had significant improvement from her first set of lumbar medial branch block injections and does not require any additional injections at this time. Patient will return to clinic in 1 month for reevaluation of symptoms and plan of care. Patient has been instructed to contact the clinic with any concerns before the next appointment. Dr. Gallegos has reviewed this note and agrees with this plan of care. This note was dictated using voice recognition software and make contain errors or omissions. All injections are used with Lidocaine or Bupivacaine and Depo Medrol.
[2024-02-21 10:29] VITALS: BP 146/91; PULSE 92; RESP 18; O2SAT 96; BMI 28.5
== END 2024-02-21 23:59 | disposition home or self-care (01) ==
LOC: SC.PAIN 09:46
PROVIDERS: PCP Physician Assistant; Visit Provider Nurse Practitioner Family
DX: M47.816 Spondylosis without myelopathy or radiculopathy, lumbar region (principal); Z79.899 Other long term (current) drug therapy
CPT/HCPCS: 99212; G0463

== ENCOUNTER 2024-08-03 14:46 | Outpatient (CLI) | payer OTHER, SELFPAY ==
--- NOTE | 2024-08-03 14:49 | MM_ITS ---
PROCEDURE INFORMATION: Exam: MG Bilateral Screening 3D Mammography Exam date and time: 08/03/2024 2:55 PM Age: 54 years old Clinical indication: Screening examination TECHNIQUE: Imaging protocol: Bilateral Screening tomosynthesis and 2D mammography including computer-aided detection (CAD) when performed. COMPARISON: 1. MG MM DIG SCREENING MAMM BI W/CAD 05/31/2023 9:55 AM 2. MG MM DIG SCREENING MAMM BI W/CAD 12/15/2021 10:15 AM FINDINGS: MAMMOGRAPHY: Breast composition: There are scattered areas of fibroglandular density. Mass: None. Architectural distortion: None. Calcifications: No suspicious calcifications. Asymmetric density: None. Skin thickening: None. Axillary adenopathy: None. IMPRESSION: No mammographic evidence of malignancy. Annual screening is recommended unless otherwise clinically indicated. ASSESSMENT: BI-RADS Category 1: Negative.
== END 2024-08-03 23:59 | disposition home or self-care (01) ==
LOC: RAD 14:46
PROVIDERS: PCP Physician Assistant; Visit Provider Physician Assistant
DX: Z12.31 Encounter for screening mammogram for malignant neoplasm of breast (principal)
CPT/HCPCS: 77063; 77067